=== PATIENT | female | born 1950 | race Caucasian/White ===

== ENCOUNTER 2017-01-20 12:19 | Observation (INO) ==
--- NOTE | 2017-01-20 13:14 | Emergency Department Note ---
Disposition Clinical Impression: Fx humerus shaft-closed, Vasovagal near syncope Disposition: Home, Self-Care Condition: Fair Referrals: Jeremiah Villanueva DO [Primary Care Provider] - Forms: ED Satisfaction Letter Time of Disposition: 14:58 (stan guerra) Nausea/Vomiting/Diarrhea HPI - General Chief complaint: ED Nausea/Vomiting/Diarrhea Stated complaint: diarrhea/ dizziness with BM Time Seen by Provider: 01/20/17 12:21 Source: patient, EMS Mode of arrival: EMS Limitations: no limitations Nursing Notes Reviewed: Yes Vital Signs Reviewed: Yes - History of Present Illness HPI Narrative: Patient was apparently sitting on the toilet when she is having a diarrhea bowel movement when she felt lightheaded. She was given a pass out patient that she was hypoglycemic so they gave her 3-1/2 bowls of ice cream and a bowl of beef stew and now the patient presents worse with a sugar of 500+ and states that she is feeling better she denies any fever chills or night sweats rash or lesion she thought her sugar bottomed out when she got syncope shows a chest pain chest pressure patient's cough hemoptysis or sputum production she has a diarrhea melena hematochezia or hematemesis times daily this recent weight gain or weight loss Pt Subjective Complaint: nausea, diarrhea Onset (ago): Just CORE MAN Description of Diarrhea: water Number of episodes: 2 Associated Abdominal Pain: Yes If pain, Location of pain: diffuse Severity: mild Severity scale (1-10): 2 Quality: cramping Consistency: intermittent Improves with: nothing Worsens with: nonthing Associated symptoms: Reports: nausea/vomiting, weakness. Denies: myalgias, chest pain, cough, diaphoresis, fever/chills, headaches, loss of appetite, malaise, dysuria, shortness of breath, syncope - Related Data Home Medications Medication Instructions Recorded Confirmed Atenolol 100 mg PO DAILY 06/27/15 01/20/17 Calcium Citrate/Vitamin D3 600 mg PO BID 06/27/15 01/20/17 Cyclobenzaprine 10 mg PO BID PRN 06/27/15 01/20/17 Ferrous Sulfate 325 mg PO DAILY 06/27/15 01/20/17 Gabapentin 300 mg PO HS 06/27/15 01/20/17 Gemfibrozil 600 mg PO BID 06/27/15 01/20/17 GlyBURIDE 10 mg PO BID 06/27/15 01/20/17 Insulin Glargine,Hum.rec.anlog 50 unit SQ HS 06/27/15 01/20/17 [Lantus Solostar] Lisinopril 20 mg PO DAILY 06/27/15 01/20/17 NovoLOG 15 units SQ TID 06/27/15 01/20/17 Aspirin 81 mg PO DAILY 01/11/17 01/20/17 Previous Rx's Medication Instructions Recorded FLUoxetine HCl [Prozac] 20 mg PO DAILY #30 capsule 06/30/15 RisperiDONE [RisperDAL] 2 mg PO HS #30 tablet 06/30/15 TraZODone 100 mg PO HS PRN #45 06/30/15 Magnesium Oxide [Mag-Ox] 400 mg PO BID #6 tablet 07/01/16 HYDROcodone/Acet 5/325 mg [[place] 1 tab PO Q6H #20 tab 01/11/17 5-325 mg] Allergies Allergy/AdvReac Type Severity Reaction Status Date / Time iodine Allergy Hives Verified 12/04/16 11:27 All systems ED: reviewed and negative except as stated. Constitutional: Denies: fever Eyes: Denies: eye pain ENT ED: Denies: ear pain Cardiovascular: Denies: chest pain Respiratory: Denies: cough Gastrointestinal: Reports: abdominal pain, nausea, diarrhea Genitourinary: Denies: urgency Musculoskeletal: Denies: back pain Integumentary: Denies: abrasion Neurological: Reports: weakness Psychiatric: Denies: depression Endocrine: Reports: fatigue Hematological/Lymphatic: Denies: easy bruising Allergic/Immunologic: Denies: facial swelling Past Medical History - Past Medical History Attestation: Yes The following information was validated with the patient. Source: patient, old records reviewed, nursing notes reviewed Medical history: Reports: diabetes, hyperlipidemia, hypertension Surgical history: Reports: cholecystectomy, hysterectomy Psychiatric history: Reports: anxiety, depression, prior suicide attempt, previous psychiatric hospitalization - Social History Smoking Status: Never smoker Smokeless Tobacco Status: No Alcohol use: Reports: none Drug use: Reports: none Physical Exam - General Limitations: no limitations General appearance: alert, in no apparent distress, cachectic - Head Head exam: atraumatic, normocephalic, normal inspection - Eye Eye exam: Present: normal appearance, PERRL, EOMI - ENT ENT exam: normal exam, normal oropharynx, mucous membranes moist, normal external ear exam - Neck Neck exam: Present: normal inspection, full ROM, trachea midline - Chest Chest inspection: Present: normal inspection - Respiratory Respiratory exam: Present: wheezes, prolonged expiratory phase - Cardiovascular Cardiovascular exam: Present: regular rate, normal rhythm, normal heart sounds - Abdominal Exam Abdominal exam: Present: soft, Non-Tender, normal bowel sounds - Extremities Exam Extremities exam: Present: normal inspection, full ROM, normal capillary refill. Absent: tenderness, joint swelling - Expanded Lower Extremity Exam Gait: observed and normal - Back Exam Back exam: Present: normal inspection, full ROM. Absent: muscle spasm - Neurological Exam Neurological exam: Present: alert, oriented X3, CN II-XII intact, normal gait - Psychiatric Psychiatric exam: Present: normal affect, normal mood - Skin Skin exam: Present: warm, dry, intact, normal color Course Course Narrative: Patient seen and examined Vital Signs Temperature 99.2 F 01/20/17 12:21 Pulse Rate 96 01/20/17 12:21 Respiratory Rate 18 01/20/17 12:21 Blood Pressure 163/65 01/20/17 12:21 O2 Sat by Pulse Oximetry 98 01/20/17 12:21 Temperature 99.2 F 01/20/17 12:21 Pulse Rate 103 01/20/17 15:12 Respiratory Rate 19 01/20/17 15:12 Blood Pressure 140/47 01/20/17 14:21 O2 Sat by Pulse Oximetry 98 01/20/17 15:12 Oxygen Delivery Oxygen Delivery Room Air Nausea/Vomiting/Diarrhea - [facility] Narrative Medical decision making narrative: Vasovagal syncope - Medical Records Medical records reviewed: Yes I reviewed the patient's medical records. - Lab Data Lab results reviewed: Yes I reviewed the patient's lab results. Result diagrams: 01/20/17 13:25 01/20/17 13:25 Lab Results 01/20/17 01/20/17 01/20/17 Range/Units 13:25 13:25 13:25 WBC 9.4 (4.3-11.1) K/mcL RBC 3.44 L (3.82-4.97) M/mcL Hgb 9.4 L (11.5-15.4) g/dL Hct 28.0 L (35.3-44.9) % MCV 81.4 L (83.0-100.0) fL MCH 27.3 L (28.0-33.3) pg MCHC 33.6 (31.6-35.5) g/dL RDW 13.9 (11.5-14.5) % Plt Count 320 (140-400) K/mcL MPV 10.1 (9.4-12.4) fL Immature Gran % 0.4 (0-4) % Seg Neutrophils % 78.3 % Lymphocytes % 13.3 % Monocytes % 5.5 % Eosinophils % 2.1 % Basophils % 0.4 % Neutrophils # 7.4 (1.6-8.9) K/mcL Lymphocytes # 1.3 (0.6-4.6) K/mcL Monocytes # 0.5 (0.0-1.3) K/mcL Eosinophils # 0.2 (0.0-0.6) K/mcL Basophils # 0.0 (0.0-0.2) K/mcL Sodium 132 L (136-145) mEq/L Potassium 4.1 (3.5-4.5) mEq/L Chloride 95 L (98-109) mEq/L Carbon Dioxide 24 (19-29) mEq/L BUN 22 H (7-20) mg/dL Creatinine 1.70 H D (0.57-1.11) mg/dL Est GFR ( Amer) 37 L (> 60) Est GFR (Non-Af Amer) 30 L (> 60) BUN/Creatinine Ratio 13 (6-26) Glucose 538 H* (70-99) mg/dL POC Glucose (58-89) Calculated Osmolality 302 H (280-300) Calcium 9.3 (8.6-10.8) mg/dL Troponin I 0.02 (0-0.03) ng/mL Beta-Hydroxybutyric Acd 1.27 H (0.02-0.27) mmol/L 01/20/17 Range/Units 15:11 WBC (4.3-11.1) K/mcL RBC (3.82-4.97) M/mcL Hgb (11.5-15.4) g/dL Hct (35.3-44.9) % MCV (83.0-100.0) fL MCH (28.0-33.3) pg MCHC (31.6-35.5) g/dL RDW (11.5-14.5) % Plt Count (140-400) K/mcL MPV (9.4-12.4) fL Immature Gran % (0-4) % Seg Neutrophils % % Lymphocytes % % Monocytes % % Eosinophils % % Basophils % % Neutrophils # (1.6-8.9) K/mcL Lymphocytes # (0.6-4.6) K/mcL Monocytes # (0.0-1.3) K/mcL Eosinophils # (0.0-0.6) K/mcL Basophils # (0.0-0.2) K/mcL Sodium (136-145) mEq/L Potassium (3.5-4.5) mEq/L Chloride (98-109) mEq/L Carbon Dioxide (19-29) mEq/L BUN (7-20) mg/dL Creatinine (0.57-1.11) mg/dL Est GFR ( Amer) (> 60) Est GFR (Non-Af Amer) (> 60) BUN/Creatinine Ratio (6-26) Glucose (70-99) mg/dL POC Glucose 315 H (58-89) Calculated Osmolality (280-300) Calcium (8.6-10.8) mg/dL Troponin I (0-0.03) ng/mL Beta-Hydroxybutyric Acd (0.02-0.27) mmol/L - Radiology Data Radiology results reviewed: Yes I reviewed the patient's radiology results. ITS Impressions Chest X-Ray 01/20/17 12:57 IMPRESSION: No acute cardiopulmonary disease. Comminuted fracture of the proximal humeral diaphysis on the right. D/ / Martin Reynoso MD / Martin Reynoso MD Interpreting Provider: Martin Reynoso MD - EKG Data EKG attestation: Yes I reviewed and interpreted this EKG. EKG results narrative: Sinus tach rate 104 FL 156 QRS 86 QT 368 axis LV Critical Care Time Critical Care Time: No
[2017-01-20 13:31] LABS: Basophils % 0.4 %; Eosinophils # 0.2 K/mcL (0.0-0.6); Eosinophils % 2.1 %; Hemoglobin 9.4 g/dL (11.5-15.4); Immature Granulocytes % 0.4 % (0-4); Lymphocytes # 1.3 K/mcL (0.6-4.6); Lymphocytes % 13.3 %; Mean Corpuscular HGB Conc 33.6 g/dL (31.6-35.5); Mean Corpuscular Hemoglobin 27.3 pg (28.0-33.3); Mean Corpuscular Volume 81.4 fL (83.0-100.0); Mean Platelet Volume 10.1 fL (9.4-12.4); Monocytes # 0.5 K/mcL (0.0-1.3); Monocytes % 5.5 %; Neutrophils # 7.4 K/mcL (1.6-8.9); Platelet Count 320 K/mcL (140-400); Red Blood Count 3.44 M/mcL (3.82-4.97); Red Cell Distribution Width 13.9 % (11.5-14.5); Segmented Neutrophils % 78.3 %
[2017-01-20 13:44] LABS: Calcium 9.3 mg/dL (8.6-10.8); Potassium 4.1 mEq/L (3.5-4.5)
[2017-01-20 13:47] LABS: Beta-Hydroxybutyric Acid 1.27 mmol/L (0.02-0.27)
[2017-01-20] MEDS ORDERED: Insulin Regular, Human 100 UNIT/ML IV ONE (13:54)
[2017-01-20] MEDS: 0.9 % Sodium Chloride 1,000 ML IVC SCH ×4 (14:15→17:11)
[2017-01-20] MEDS ORDERED: Naloxone 0.4 MG/ML INJ IVP PRN (16:19)
[2017-01-20] MEDS ORDERED: D5% in Water 1,000 ML IVC PRN (16:19)
[2017-01-20] MEDS ORDERED: Dextrose Gel 15 GM PO PRN ×2 (16:19)
[2017-01-20] MEDS ORDERED: Ondansetron 4 MG/2 ML VIAL IVP PRN (16:19)
[2017-01-20] MEDS ORDERED: Ibuprofen 400 MG TABLET PO PRN (16:19)
[2017-01-20] MEDS ORDERED: *HR* Dextrose 50 % in Water (Syg) 50 ML SYRINGE IVP PRN (16:19)
[2017-01-20] MEDS: Insulin LISPRO 300 UNITS/3 ML VIAL SQ SCH ×3 (17:10→21:15)
[2017-01-20] MEDS: *HR* HYDROcodone/Acet 5/325 mg TABLET PO SCH (17:11)
--- NOTE | 2017-01-20 20:56 | Electrocardiograph Report ---
[address] [address] Test Date: 2017-01-20 Pat Name: Whit Harmon Department: [id number] Room: [facility] Gender: F Relief Cook: [id number] : 1950 Requested By: Dori Wilson Order Number: [id number] Reading MD: Philippe Villegas MD Measurements Intervals [place] Rate: 104 P: 78 IN: 156 QRS: 55 QRSD: 86 T: 48 QT: 368 QTc: 428 Interpretive Statements SINUS TACHYCARDIA Electronically Signed On 01-20-2017 20:54:59 EDT by Philippe Villegas MD
[2017-01-20] MEDS: RisperiDONE 1 MG TABLET PO SCH (21:13)
[2017-01-20] MEDS: Gabapentin 300 MG CAPSULE PO SCH (21:14)
[2017-01-20] MEDS: Insulin DETEMIR 100 UNIT/ML X5UNITS SQ SCH (21:14)
[2017-01-20] MEDS: Magnesium Oxide 400 MG TABLET PO SCH (21:14)
[2017-01-20] MEDS: *HR* GlyBURIDE 5 MG TABLET PO SCH (21:14)
[2017-01-21 03:12] LABS: Basophils % 0.4 %; Eosinophils # 0.4 K/mcL (0.0-0.6); Eosinophils % 5.5 %; Hematocrit 26.7 % (35.3-44.9); Hemoglobin 8.8 g/dL (11.5-15.4); Immature Granulocytes % 0.3 % (0-4); Lymphocytes # 2.8 K/mcL (0.6-4.6); Lymphocytes % 37.7 %; Mean Corpuscular Hemoglobin 27.2 pg (28.0-33.3); Mean Corpuscular Volume 82.4 fL (83.0-100.0); Mean Platelet Volume 9.3 fL (9.4-12.4); Monocytes # 0.4 K/mcL (0.0-1.3); Monocytes % 5.3 %; Neutrophils # 3.7 K/mcL (1.6-8.9); Platelet Count 290 K/mcL (140-400); Red Blood Count 3.24 M/mcL (3.82-4.97); Segmented Neutrophils % 50.8 %
[2017-01-21 03:17] LABS: INR 1.2; Prothrombin Time 12.5 Seconds (9.4-12.1)
[2017-01-21 03:27] LABS: BUN/Creatinine Ratio 20 (6-26); Blood Urea Nitrogen 17 mg/dL (7-20); Calcium 8.8 mg/dL (8.6-10.8); Carbon Dioxide 22 mEq/L (19-29); Chloride 107 mEq/L (98-109); Glucose 76 mg/dL (70-99); Potassium 2.9 mEq/L (3.5-4.5); eGFR For African Americans > 60 (> 60); eGFR For Non-African Americans > 60 (> 60)
[2017-01-21 03:52] LABS: Osmolality,Calculated 294 (280-300); Sodium 142 mEq/L (136-145)
[2017-01-21] MEDS: 0.9 % Sodium Chloride 1,000 ML IVC SCH ×2 (04:00→04:13)
[2017-01-21] MEDS: CALCIUM CITRATE PO SCH ×3 (04:13→21:08)
[2017-01-21] MEDS: [UNRECOGNIZED DRUG - OTHER] PO SCH ×3 (04:13→21:08)
[2017-01-21] MEDS: *HR* HYDROcodone/Acet 5/325 mg TABLET PO SCH ×5 (04:16→22:49)
[2017-01-21] MEDS: Insulin LISPRO 300 UNITS/3 ML VIAL SQ SCH ×7 (07:44→21:10)
[2017-01-21] MEDS: *HR* GlyBURIDE 5 MG TABLET PO SCH ×3 (07:44→21:08)
[2017-01-21] MEDS: Lisinopril 20 MG TABLET PO SCH (07:46)
[2017-01-21] MEDS: Aspirin Enteric Coated 81 MG Tablet PO SCH (07:46)
[2017-01-21] MEDS: FLUoxetine 20 MG CAPSULE PO SCH (07:46)
[2017-01-21] MEDS: Magnesium Oxide 400 MG TABLET PO SCH ×2 (07:46→21:08)
--- NOTE | 2017-01-21 09:19 | Internal Med History&Physical ---
Date of Encounter: 01/21/17 Time of Encounter: 08:35 Assessment and Plan (1) Syncope Current visit: Yes Status: Acute Etiology not certain but suspect cardiogenic etiology. She has been placed on telemetry. Orthostatic vital signs will be done. Repeat cardiac enzymes have been ordered and further workup as needed. Qualifiers: Syncope type: unspecified Qualified Code(s): R55 - Syncope and collapse (2) Anemia Current visit: No Status: Acute We will order anemia testing in a.m. Qualifiers: Anemia type: unspecified type Qualified Code(s): D64.9 - Anemia, unspecified (3) Azotemia Current visit: No Status: Resolved Now resolved. BUN and creatinine are 17 and 0.5 respectively on blood work this morning. (4) Hypomagnesemia Current visit: Yes Status: Acute Magnesium level was 1.4 on 07/01/2016. We will recheck in a.m. Internal Medicine - H&P: HPI Chief complaint: Syncope Admitted From: Home Plans for Post Hospital Care: Home History of present illness: Ms. Harmon is a 66 year old female who was brought to the emergency room from mental health clinic after she had a syncopal episode while sitting on the toilet. She had eaten 3 bowls of ice cream and beef stew at a social gathering. In emergency room her blood sugar was found to be 538 mg/dl. She had anemia and azotemia present. She was admitted to [facility] floor for ongoing care needs. She was hospitalized [facility] June 2016 with a syncopal episode. She reports she has had syncopal episodes approximately every 6 weeks since age 18. She had a syncopal episode approximately 2 weeks ago at latter day and fell resulting in a right humerus fracture. She was seen by the orthopedist and referred to cardiology for preoperative clearance. An echocardiogram was ordered which showed LVEF 65% with indeterminate LV diastolic function reported. The E/A ratio was 0.6. There was mild aortic regurgitation but no significant aortic stenosis. The intraventricular septum and posterior wall thickness measurements were elevated at 1.5 and 1.4 cm respectively. She states she wore a Holter monitor for 24 hours but no report is seen in the [facility] records. Her cardiovascular history is significant otherwise for hypertension but she denies [place] heart failure angina DVT or pulmonary embolus. She has not had a stress test or heart catheter done. Her neurologic history is pertinent for possible TIA 2002 with slurred speech. There is been no recurrence. She has DPN. She denies large distribution strokes or seizures. She states the syncopal episodes often are associated with sensation of vertigo and tunnel vision. She denies associated dysarthria or dysphagia. She denies loss of bowel or bladder continence. Past Med Surg Social Fam HX - Past Medical History Medical history: diabetes, hyperlipidemia, hypertension Psychiatric history: anxiety, depression, prior suicide attempt, previous psychiatric hospitalization - Past Surgical History Surgical History: cholecystectomy, hysterectomy - Social History Smoking Status: Never smoker Smokeless Tobacco Status: No Alcohol use: none Drug use: none Internal Medicine - H&P: Meds Atenolol 100 mg PO DAILY 06/27/15 [History] Calcium Citrate/Vitamin D3 600 mg PO BID 06/27/15 [History] Cyclobenzaprine 10 mg PO BID PRN 06/27/15 [History] Ferrous Sulfate 325 mg PO DAILY 06/27/15 [History] Gabapentin 300 mg PO HS 06/27/15 [History] Gemfibrozil 600 mg PO BID 06/27/15 [History] GlyBURIDE 10 mg PO BID 06/27/15 [History] Insulin Glargine,Hum.rec.anlog [Lantus Solostar] 50 unit SQ HS 06/27/15 [History ] Lisinopril 20 mg PO DAILY 06/27/15 [History] NovoLOG 15 units SQ TID 06/27/15 [History] FLUoxetine HCl [Prozac] 20 mg PO DAILY #30 capsule 06/30/15 [Rx] RisperiDONE [RisperDAL] 2 mg PO HS #30 tablet 06/30/15 [Rx] TraZODone 100 mg PO HS PRN #45 06/30/15 [Rx] Magnesium Oxide [Mag-Ox] 400 mg PO BID #6 tablet 07/01/16 [Rx] Aspirin 81 mg PO DAILY 01/11/17 [History] HYDROcodone/Acet 5/325 mg [[place] 5-325 mg] 1 tab PO Q6H #20 tab 01/11/17 [Rx] Allergies iodine Allergy (Verified 12/04/16 11:27) Hives All Systems PM: A 10-system review of systems was performed and is negative for pertinent findings except as documented above in the HPI. Review of systems: Gen.: Her weight has increased from 77.593 kg at the June 2016 discharge to 81.692 kg at present. Cardiovascular: As per history of present illness Respiratory: She smoked for approximately 16 months 10 years ago. She denies chronic lung disease. She had pulmonary function testing October 2012 which showed FEV1/FVC ratio of 0.85. Her MVV was 55% predicted. The residual volume was elevated at 136% consistent with air trapping. She wears oxygen at bedtime. She does not know the diagnosis for the oxygen use. GI: She has had cholecystectomy. She denies disorders of her liver or exocrine pancreas : She has occasional UTIs. She denies other kidney or bladder disorders Neurologic: As per history of present illness Endocrine: She was diagnosed DM 2 approximately 20 years ago. She has hyperlipidemia but no known thyroid disease Hematology/oncology: She had anemia workup during the June 2016 hospitalization which showed no factor deficiency. She denies internal malignancies Psychiatric: She has diagnoses of depression, anxiety, and schizophrenia Musk skeletal: She has DJD and occasional feelings of leg weakness. She denies other bone joint or muscle disorders. - Constitutional Vitals: Temp Pulse Resp BP Pulse Ox 97.5 F L 97 16 138/75 99 01/21/17 06:57 01/21/17 06:57 01/21/17 06:57 01/21/17 06:57 01/21/17 06:57 Exam: General: She is a well-developed well-nourished female lying in bed who appears in no acute distress at present time. HEENT: Head is atraumatic and normocephalic. Eyes: EOMI. There is no scleral icterus. Mouth: Mucosa is moist. Neck: Supple and nontender. There is no thyromegaly or adenopathy noted. Heart: Regular without murmurs gallops or ectopics. Lungs: No wheezes or crackles heard. Abdomen: Soft and nontender. No masses or guarding are noted. Extremities: There is no cyanosis edema or clubbing noted. The right arm is in an immobilization sling and I did not remove it. Left arm appears normal. Neurologic: Mental status: She is talkative and a good historian. Cranial nerves: Smile is symmetric. Forehead wrinkles bilaterally. Tongue protrudes midline. EOMI. Motor: There is no pronator drift (left arm). Cerebellar: Finger to nose is intact bilaterally. Skin: Warm and dry Internal Med - H&P Results - Labs CBC & Chem 7: 01/21/17 03:00 01/21/17 03:00 Labs: Short CBC 01/21/17 Range/Units 03:00 WBC 7.3 (4.3-11.1) K/mcL Hgb 8.8 L (11.5-15.4) g/dL Hct 26.7 L (35.3-44.9) % Plt Count 290 (140-400) K/mcL Neutrophils # 3.7 (1.6-8.9) K/mcL BMP 01/21/17 03:00 Sodium 142 D Potassium 2.9 L D Chloride 107 Carbon Dioxide 22 BUN 17 Creatinine 0.85 Glucose 76 Calcium 8.8 Cardiac Enzymes 01/20/17 01/21/17 Range/Units 19:45 03:00 Troponin I 0.03 0.02 (0-0.03) ng/mL
[2017-01-21] MEDS: RisperiDONE 1 MG TABLET PO SCH (21:08)
[2017-01-21] MEDS: Gabapentin 300 MG CAPSULE PO SCH (21:08)
[2017-01-21] MEDS: Insulin DETEMIR 100 UNIT/ML X5UNITS SQ SCH (21:11)
[2017-01-22] MEDS: *HR* HYDROcodone/Acet 5/325 mg TABLET PO SCH ×2 (05:26→11:53)
[2017-01-22 05:55] LABS: Basophils % 0.5 %; Eosinophils # 0.4 K/mcL (0.0-0.6); Eosinophils % 5.6 %; Hematocrit 26.1 % (35.3-44.9); Hemoglobin 8.7 g/dL (11.5-15.4); Immature Granulocytes % 0.3 % (0-4); Lymphocytes % 38.8 %; Mean Corpuscular HGB Conc 33.3 g/dL (31.6-35.5); Mean Corpuscular Hemoglobin 27.8 pg (28.0-33.3); Mean Corpuscular Volume 83.4 fL (83.0-100.0); Monocytes # 0.5 K/mcL (0.0-1.3); Monocytes % 6.8 %; Neutrophils # 3.7 K/mcL (1.6-8.9); Platelet Count 307 K/mcL (140-400); Red Blood Count 3.13 M/mcL (3.82-4.97); Red Cell Distribution Width 14.4 % (11.5-14.5)
[2017-01-22 06:19] LABS: BUN/Creatinine Ratio 22 (6-26); Blood Urea Nitrogen 17 mg/dL (7-20); Calcium 9.3 mg/dL (8.6-10.8); Carbon Dioxide 22 mEq/L (19-29); Chloride 108 mEq/L (98-109); Glucose 66 mg/dL (70-99); Magnesium 1.7 mg/dL (1.6-2.6); Osmolality,Calculated 292 (280-300); Potassium 4.1 mEq/L (3.5-4.5); Sodium 141 mEq/L (136-145); eGFR For African Americans > 60 (> 60); eGFR For Non-African Americans > 60 (> 60)
[2017-01-22 07:26] VITALS: BP 133/86
[2017-01-22] MEDS: FLUoxetine 20 MG CAPSULE PO SCH (09:00)
[2017-01-22] MEDS: Aspirin Enteric Coated 81 MG Tablet PO SCH (09:00)
[2017-01-22] MEDS: *HR* GlyBURIDE 5 MG TABLET PO SCH (09:00)
[2017-01-22] MEDS: Magnesium Oxide 400 MG TABLET PO SCH (09:01)
[2017-01-22] MEDS: Lisinopril 20 MG TABLET PO SCH (09:02)
[2017-01-22] MEDS: Insulin LISPRO 300 UNITS/3 ML VIAL SQ SCH ×3 (09:06→11:54)
[2017-01-22] MEDS: [UNRECOGNIZED DRUG - OTHER] PO SCH (09:07)
[2017-01-22] MEDS: CALCIUM CITRATE PO SCH (09:07)
--- NOTE | 2017-01-22 13:34 | Discharge Summary ---
Date of Encounter: 01/22/17 Time of Encounter: 13:25 - Discharge Diagnosis (1) Syncope Priority: Primary Status: Acute Qualifiers: Syncope type: unspecified Qualified Code(s): R55 - Syncope and collapse (2) Anemia Priority: Secondary Status: Acute Qualifiers: Anemia type: unspecified type Qualified Code(s): D64.9 - Anemia, unspecified (3) Azotemia Priority: Secondary Status: Resolved (4) Hypomagnesemia Priority: Secondary Status: Resolved - Discharge Medications Home Medications: Atenolol 100 mg PO DAILY 06/27/15 [History] Calcium Citrate/Vitamin D3 600 mg PO BID 06/27/15 [History] Cyclobenzaprine 10 mg PO BID PRN 06/27/15 [History] Ferrous Sulfate 325 mg PO DAILY 06/27/15 [History] Gabapentin 300 mg PO HS 06/27/15 [History] Gemfibrozil 600 mg PO BID 06/27/15 [History] GlyBURIDE 10 mg PO BID 06/27/15 [History] Insulin Glargine,Hum.rec.anlog [Lantus Solostar] 50 unit SQ HS 06/27/15 [History ] Lisinopril 20 mg PO DAILY 06/27/15 [History] NovoLOG 15 units SQ TID 06/27/15 [History] FLUoxetine HCl [Prozac] 20 mg PO DAILY #30 capsule 06/30/15 [Rx] RisperiDONE [RisperDAL] 2 mg PO HS #30 tablet 06/30/15 [Rx] TraZODone 100 mg PO HS PRN #45 06/30/15 [Rx] Magnesium Oxide [Mag-Ox] 400 mg PO BID #6 tablet 07/01/16 [Rx] Aspirin 81 mg PO DAILY 01/11/17 [History] HYDROcodone/Acet 5/325 mg [[place] 5-325 mg] 1 tab PO Q6H #20 tab 01/11/17 [Rx] Allergies/Adverse Reactions: Allergies iodine Allergy (Verified 12/04/16 11:27) Hives Date of admission: 01/20/17 16:02 Primary care physician: Jeremiah Villanueva DO Consults: 01/20/17 16:56 Consult to Security Incident Handler [CONS] Routine Reason for SW Consult: discharge planning - Patient Status Disposition: Home, Self-Care Condition: Fair Overall status at discharge: patient is progressing back to baseline - Discharge Instructions Follow Up With: Jeremiah Villanueva DO [Primary Care Provider] - 1 week - Diet and Activity Activity: resume usual activities as tolerated Diet: advance to your usual diet Hospital course: Ms. Harmon is a 66 year old female who was brought to the emergency room from mental health clinic after she had a syncopal episode while sitting on the toilet. She had eaten 3 bowls of ice cream and a bowl of beef stew at a social gathering. In emergency room her blood sugar was found to be 538 mg/dl. She had anemia and azotemia present. She was admitted to [facility] for ongoing care needs. Initial orders were written by the emergency room physician. I saw her on January 21 and performed a history and physical. Her blood sugar remained reasonably controlled during her hospital stay. She had no further syncopal or syncopal episodes. Her telemetry remained stable without ectopy. The etiology of her syncopal episodes was not determined with certainty. IV fluids were given and her azotemia resolved with BUN and creatinine being 17 and 0.76 respectively the day of discharge with her estimated GFR greater than 60. Hemoglobin decreased to 8.7 the day of discharge. Anemia testing was ordered with results pending at time of this dictation. She will be discharged home and follow with her PCP Jeremiah Villanueva D.O. within 1 week. She is scheduled for right shoulder surgery tomorrow. - Time Spent with Patient Total time spent providing and/or coordinating discharge services: - Constitutional Vitals: Temp Pulse Resp BP Pulse Ox 98.5 F 79 16 133/86 95 01/22/17 10:58 01/22/17 10:58 01/22/17 10:58 01/22/17 10:58 01/22/17 10:58
[2017-01-22 18:20] LABS: % Iron Saturation 14 % (15-50); Iron 36 mcg/dL (50-170); Transferrin 189 mg/dL (180-382)
[2017-01-22 18:40] LABS: Ferritin 511 ng/ml (5-204)
[2017-01-22 18:55] LABS: Folate 16.7 ng/mL (7.0-31.4)
== END 2017-01-22 16:25 | disposition home or self-care (01) ==
LOC: EMEROOPIK 12:19 → INPPIK 12:19
PROVIDERS: ADMIT Internal Medicine; ATTEND Internal Medicine

== ENCOUNTER 2017-06-28 10:45 | Observation (INO) ==
[2017-06-28 11:40] LABS: Basophils % 0.5 %; Eosinophils # 0.3 K/mcL (0.0-0.6); Eosinophils % 3.5 %; Hematocrit 30.1 % (35.3-44.9); Hemoglobin 10.2 g/dL (11.5-15.4); Immature Granulocytes % 0.2 % (0-4); Lymphocytes # 1.6 K/mcL (0.6-4.6); Lymphocytes % 17.8 %; Mean Corpuscular HGB Conc 33.9 g/dL (31.6-35.5); Mean Corpuscular Hemoglobin 27.6 pg (28.0-33.3); Mean Corpuscular Volume 81.4 fL (83.0-100.0); Mean Platelet Volume 10.5 fL (9.4-12.4); Monocytes # 0.4 K/mcL (0.0-1.3); Monocytes % 4.5 %; Neutrophils # 6.4 K/mcL (1.6-8.9); Platelet Count 321 K/mcL (140-400); Red Cell Distribution Width 13.1 % (11.5-14.5); Segmented Neutrophils % 73.5 %
[2017-06-28 11:48] LABS: INR 1.1; Prothrombin Time 12.2 Seconds (9.4-12.1)
[2017-06-28 11:51] LABS: Activated Partial Thrombo Time 38.3 Seconds (26.0-36.0)
--- NOTE | 2017-06-28 11:53 | Emergency Department Note ---
Disposition Clinical Impression: Hypotension, Bradycardia Disposition: Admitted As Inpatient Condition: Fair Referrals: Jeremiah Villanueva DO [Primary Care Provider] - Forms: ED Satisfaction Letter Time of Disposition: 13:00 ([facility]) Dizziness HPI - General Chief Complaint: ED Dizziness Stated Complaint: low blood pressure, slurred speech Time Seen by Provider: 06/28/17 10:55 Source: patient, EMS Mode of arrival: EMS Limitations: no limitations Nursing Notes Reviewed: Yes Vital Signs Reviewed: Yes - History of Present Illness HPI Narrative: Patient's been dizzy for the last 2 days today when at physical therapy felt lightheaded dizzy was going to pass out they took her to the local urgent care and and she was noted to have a blood pressure of 80 palp and bradycardic symptomatic with this was given fluids and transported to the emergency room for evaluation last known well was 48 hours plus patient does states that she is tired just wants to sleep she is taking what appears to be hydrocodone for pain medication she denies that she has taken more than she should have forsaken anymore medications and she should have she states that she is not eating or drinking is not very hungry Pt Subjective Complaint: dizziness, lightheadedness, near syncope, weakness Onset (ago): day(s) (2) Timing: gradual onset Description: lightheadedness History of similar episodes: No History of trauma: No Severity: moderate Improves with: nothing Worsens with: nothing Associated symptoms: Reports: malaise, syncope (near), weakness. Denies: ataxia , chest pain, confusion, diaphoresis, fever, chills, rash, shortness of breath, vision changes, nausea, vomiting, palpitations - Related Data Home Medications Medication Instructions Recorded Confirmed Insulin ASPART [NovoLOG] 0 unit SQ TID PRN #0 06/27/15 06/28/17 Insulin Glargine,Hum.rec.anlog 15 unit SQ BID 06/27/15 06/28/17 [Lantus Solostar] Lisinopril [Zestril] 20 mg PO DAILY #0 06/27/15 06/28/17 Aspirin 81 mg PO DAILY 01/23/17 06/28/17 Calcium Carbonate/Vitamin D3 1 each PO BID 01/23/17 06/28/17 [Calcium 500 + Vit D Caplet] Cyclobenzaprine [Flexeril] 10 mg PO BID 01/23/17 06/28/17 Ferrous Sulfate [Iron] 325 mg PO DAILY 01/23/17 06/28/17 Gabapentin [Neurontin] 300 mg PO DAILY 01/23/17 06/28/17 Gemfibrozil [Lopid] 600 mg PO BID 01/23/17 06/28/17 Linagliptin/Metformin HCl 1 each PO BID 01/23/17 06/28/17 [Jentadueto 2.5 mg-1000 mg Tab] Paroxetine HCl [Paxil] 40 mg PO DAILY 01/23/17 06/28/17 Trazodone HCl 100 mg PO HS 01/23/17 06/28/17 glyBURIDE [GlyBURIDE] 10 mg PO BID 01/23/17 06/28/17 hydroCHLOROthiazide 25 mg PO DAILY 01/23/17 06/28/17 [Hydrochlorothiazide] risperiDONE [Risperdal] 4 mg PO HS 01/23/17 06/28/17 Previous Rx's Medication Instructions Recorded Magnesium Oxide [Mag-Ox] 400 mg PO BID #6 tablet 07/01/16 HYDROcodone/Acet 5/325 mg [[place] 1 tab PO Q6H #20 tab 01/11/17 5-325 mg] OxyCODONE Immed Rel [Roxicodone 5 5 mg PO Q6HR PRN #28 tablet 01/22/17 MG] Allergies Allergy/AdvReac Type Severity Reaction Status Date / Time iodine Allergy Hives Verified 06/28/17 10:38 All systems ED: reviewed and negative except as stated. Review of Systems: As Per HPI Constitutional: Reports: weakness. Denies: fever, chills Eyes: Denies: eye pain ENT ED: Denies: ear pain, throat pain Cardiovascular: Denies: chest pain, palpitations Respiratory: Denies: cough, dyspnea Gastrointestinal: Denies: abdominal pain, nausea, vomiting Genitourinary: Denies: urgency, dysuria, frequency Musculoskeletal: Denies: back pain, neck pain Integumentary: Denies: rash, abrasion, lesions Neurological: Reports: weakness, other (slurred speech). Denies: headache Psychiatric: Denies: anxiety, depression Endocrine: Reports: fatigue Hematological/Lymphatic: Denies: easy bleeding, easy bruising Allergic/Immunologic: Denies: facial swelling, urticaria Past Medical History - Past Medical History Attestation: Yes The following information was validated with the patient. Source: patient, old records reviewed, nursing notes reviewed Medical history: Reports: diabetes, hyperlipidemia, hypertension Surgical history: Reports: cholecystectomy, hysterectomy Psychiatric history: Reports: anxiety, depression, prior suicide attempt, previous psychiatric hospitalization - Social History Smoking Status: Never smoker Smokeless Tobacco Status: No Alcohol use: Reports: none Drug use: Reports: none Physical Exam - General Limitations: no limitations General appearance: alert, in no apparent distress - Head Head exam: atraumatic, normocephalic, normal inspection - Eye Eye exam: Present: normal appearance, PERRL, EOMI - ENT ENT exam: normal exam, normal oropharynx, mucous membranes moist, TM's normal bilaterally, normal external ear exam, other (Upper plate only for dentures) - Neck Neck exam: Present: normal inspection, full ROM, trachea midline - Chest Chest inspection: Present: normal inspection, symmetric chest wall rise - Respiratory Respiratory exam: Present: normal lung sounds bilaterally - Cardiovascular Cardiovascular exam: Present: bradycardia, normal heart sounds - Abdominal Exam Abdominal exam: Present: soft, Non-Tender, normal bowel sounds. Absent: mass, pulsatile mass - Expanded Upper Extremity Exam Shoulder exam: Present: normal inspection, full ROM, other (Slight weakness noted in the right upper extremity from the shoulder to the elbow region as result of a recent fracture and loss of muscle tone which she is currently getting physical therapy but she follows commands well briskly is able to hold it up without any drift noted on neuro exam) Arm exam: Present: normal inspection, full ROM Elbow exam: Present: normal inspection, full ROM Forearm/Wrist exam: Present: normal inspection, full ROM Hand exam: Present: normal inspection, full ROM Neurosensory exam: Normal: radial nerve, ulnar nerve, median nerve Vascular exam: Normal: capillary refill, radial pulse, ulnar pulse - Expanded Lower Extremity Exam Hip/Pelvis exam: Present: normal inspection, full ROM Upper leg exam: Present: normal inspection, full ROM Knee exam: Present: normal inspection, full ROM Lower leg exam: Present: normal inspection, full ROM Ankle exam: Present: normal inspection, full ROM Foot/toe exam: Present: normal inspection, full ROM Neurovascular/Tendon exam: Present: normal capillary refill, normal fine/light touch. Absent: motor deficit, sensory deficit, tendon deficit Gait: not tested/not observed - Back Exam Back exam: Present: normal inspection, full ROM. Absent: muscle spasm - Neurological Exam Neurological exam: Present: alert, oriented X3, CN II-XII intact, other (Speech slurred but only upper dental plate is in place patient is very lethargic but arouses easily goes back to sleep) - Psychiatric Psychiatric exam: Present: normal affect, normal mood - Skin Skin exam: Present: warm, dry, intact, normal color Course Course Narrative: Patient was seen and examined patient was admitted for observation as a result of the symptomatic bradycardia hypotension which may be medication related she did not have a full set of teeth in that her speech was slurred she had no focal weakness right arm or left arm except for where she had her previous fracture of the right arm having a little bit of weakness in the right arm due to recently having it removed from surgical splinting patient had no swelling no edema her serial enzymes and EKGs Vital Signs Temperature 97.1 F L 06/28/17 10:47 Pulse Rate 57 06/28/17 10:47 Respiratory Rate 18 06/28/17 10:47 Blood Pressure 124/65 06/28/17 10:47 O2 Sat by Pulse Oximetry 97 06/28/17 10:47 Temperature 97.1 F L 06/28/17 10:47 Pulse Rate 56 06/28/17 12:39 Respiratory Rate 18 06/28/17 12:39 Blood Pressure 106/65 06/28/17 12:39 O2 Sat by Pulse Oximetry 97 06/28/17 12:39 Oxygen Delivery Oxygen Delivery Room Air Dizziness - Differential Diagnosis Likely: adverse reaction to drug, orthostatic hypotension - Medical Records Medical records reviewed: Yes I reviewed the patient's medical records. - Lab Data Lab results reviewed: Yes I reviewed the patient's lab results. Result diagrams: 06/28/17 11:31 06/28/17 11:31 Lab Results 06/28/17 06/28/17 06/28/17 Range/Units 11:30 11:31 11:31 WBC 8.8 (4.3-11.1) K/mcL RBC 3.70 L (3.82-4.97) M/mcL Hgb 10.2 L (11.5-15.4) g/dL Hct 30.1 L (35.3-44.9) % MCV 81.4 L (83.0-100.0) fL MCH 27.6 L (28.0-33.3) pg MCHC 33.9 (31.6-35.5) g/dL RDW 13.1 (11.5-14.5) % Plt Count 321 (140-400) K/mcL MPV 10.5 (9.4-12.4) fL Immature Gran % 0.2 (0-4) % Seg Neutrophils % 73.5 % Lymphocytes % 17.8 % Monocytes % 4.5 % Eosinophils % 3.5 % Basophils % 0.5 % Neutrophils # 6.4 (1.6-8.9) K/mcL Lymphocytes # 1.6 (0.6-4.6) K/mcL Monocytes # 0.4 (0.0-1.3) K/mcL Eosinophils # 0.3 (0.0-0.6) K/mcL Basophils # 0.0 (0.0-0.2) K/mcL PT 12.2 H (9.4-12.1) Seconds INR 1.1 APTT 38.3 H (26.0-36.0) Seconds Sodium (136-145) mEq/L Potassium (3.5-4.5) mEq/L Chloride (98-109) mEq/L Carbon Dioxide (19-29) mEq/L BUN (7-20) mg/dL Creatinine (0.57-1.11) mg/dL Est GFR ( Amer) (> 60) Est GFR (Non-Af Amer) (> 60) BUN/Creatinine Ratio (6-26) Glucose (70-99) mg/dL Calculated Osmolality (280-300) Calcium (8.6-10.8) mg/dL Troponin I 0.00 (0-0.03) ng/mL TSH (0.350-4.840) mcIU/mL 06/28/17 Range/Units 11:31 WBC (4.3-11.1) K/mcL RBC (3.82-4.97) M/mcL Hgb (11.5-15.4) g/dL Hct (35.3-44.9) % MCV (83.0-100.0) fL MCH (28.0-33.3) pg MCHC (31.6-35.5) g/dL RDW (11.5-14.5) % Plt Count (140-400) K/mcL MPV (9.4-12.4) fL Immature Gran % (0-4) % Seg Neutrophils % % Lymphocytes % % Monocytes % % Eosinophils % % Basophils % % Neutrophils # (1.6-8.9) K/mcL Lymphocytes # (0.6-4.6) K/mcL Monocytes # (0.0-1.3) K/mcL Eosinophils # (0.0-0.6) K/mcL Basophils # (0.0-0.2) K/mcL PT (9.4-12.1) Seconds INR APTT (26.0-36.0) Seconds Sodium 139 (136-145) mEq/L Potassium 4.0 (3.5-4.5) mEq/L Chloride 102 (98-109) mEq/L Carbon Dioxide 24 (19-29) mEq/L BUN 30 H (7-20) mg/dL Creatinine 0.99 (0.57-1.11) mg/dL Est GFR ( Amer) > 60 (> 60) Est GFR (Non-Af Amer) 56 L (> 60) BUN/Creatinine Ratio 30 H (6-26) Glucose 117 H (70-99) mg/dL Calculated Osmolality 295 (280-300) Calcium 10.0 (8.6-10.8) mg/dL Troponin I (0-0.03) ng/mL TSH 1.129 (0.350-4.840) mcIU/mL - Radiology Data Radiology results reviewed: Yes I reviewed the patient's radiology results. ITS Impressions Head CT 06/28/17 11:05 IMPRESSION: 1. No acute intracranial abnormality. These findings were discussed with Dr. Wilson at 11:40 a.m. 06/28/2017. D/ / Russell Langston MD / Russell Langston MD Interpreting Provider: Russell Langston MD Chest X-Ray 06/28/17 11:06 IMPRESSION: No acute cardiopulmonary process identified. D/ / Jordan Dunaway MD / Jordan Dunaway MD Interpreting Provider: Jordan Dunaway MD - EKG Data EKG attestation: Yes I reviewed and interpreted this EKG. EKG results narrative: Sinus bradycardia rate 56 UT 170 QRS 87 QT 468 axis LXIV Critical Care Time Critical Care Time: No
[2017-06-28 11:57] LABS: BUN/Creatinine Ratio 30 (6-26); Blood Urea Nitrogen 30 mg/dL (7-20); Carbon Dioxide 24 mEq/L (19-29); Chloride 102 mEq/L (98-109); Glucose 117 mg/dL (70-99); Osmolality,Calculated 295 (280-300); Sodium 139 mEq/L (136-145); eGFR For African Americans > 60 (> 60); eGFR For Non-African Americans 56 (> 60)
[2017-06-28 12:18] LABS: Thyroid Stimulating Hormone 1.129 mcIU/mL (0.350-4.840)
[2017-06-28] MEDS ORDERED: *HR* Dextrose 50 % in Water (Syg) 50 ML SYRINGE IVP PRN (14:03)
[2017-06-28] MEDS ORDERED: Naloxone 0.4 MG/ML INJ IVP PRN (14:03)
[2017-06-28] MEDS ORDERED: *HR* OxyCODONE Immed Rel 5 MG TABLET PO PRN (14:03)
[2017-06-28] MEDS ORDERED: Dextrose Gel 15 GM PO PRN ×2 (14:03)
[2017-06-28] MEDS ORDERED: D5% in Water 1,000 ML IVC PRN (14:03)
[2017-06-28] MEDS ORDERED: Ondansetron 4 MG/2 ML VIAL IVP PRN (14:03)
[2017-06-28] MEDS ORDERED: 0.9 % Sodium Chloride 1,000 ML IVC SCH (14:03)
[2017-06-28] MEDS: Insulin LISPRO 300 UNITS/3 ML VIAL SQ SCH (17:03)
[2017-06-28] MEDS: *HR* HYDROcodone/Acet 5/325 mg TABLET PO SCH ×2 (17:06→22:22)
--- NOTE | 2017-06-28 17:14 | Internal Med History&Physical ---
Date of Encounter: 06/28/17 Time of Encounter: 16:45 Assessment and Plan (1) Lightheaded Current visit: No Status: Acute Suspect multifactorial etiology including medications with possible hypovolemia. I will hold her Flexeril and hydrochlorothiazide. IV fluids will be given. Orthostatic vital signs and repeat labs will be done in a.m. (2) Anemia Current visit: No Status: Acute Improved. Qualifiers: Anemia type: unspecified type Qualified Code(s): D64.9 - Anemia, unspecified (3) Azotemia Current visit: No Status: Resolved Will hold HCTZ and give IV fluids. Recheck labs in a.m. (4) Weight loss Current visit: No Status: Acute TSH was normal in ER at 1.129. She states she has changed her diet since last admission in January 2017 by eating more healthfully. Internal Medicine - H&P: HPI Chief complaint: Lightheadedness Admitted From: Home Plans for Post Hospital Care: Home History of present illness: Ms. Harmon is a 66 year old female who came to the emergency room from a local urgent care stating she had onset of lightheadedness approximately 3 PM yesterday while standing. Her symptoms improved slightly after she had taken a nap but were still present. She slept through the night but awakened this morning with symptoms still present. She went to a local urgent care and was referred to emergency room after she was found to have blood pressure of 80 palpable and bradycardia and heart rate in the 50s. She was admitted to [facility] floor for ongoing care needs. She states she feels improved at the present time. She denies orthostatic symptoms on arising from seated position over the past few days. She does not check her blood pressure regularly at home. Her cardiovascular history is significant for hypertension but no known CA heart failure angina DVT or pulmonary embolus. She has not had a stress test or heart catheter done. Her neurologic history is pertinent for possible TIA 2002 with slurred speech. She has had no recurrence. She has DPN. She denies large distribution strokes or seizures. She states she has had numerous syncopal episodes since age 18 associated with vertigo and tunnel vision. No etiology has been found for these. She states they have lessened since her January 2017 [facility] hospitalization for syncope. Past Med Surg Social Fam HX - Past Medical History Medical history: diabetes, hyperlipidemia, hypertension Psychiatric history: anxiety, depression, prior suicide attempt, previous psychiatric hospitalization - Past Surgical History Surgical History: cholecystectomy, hysterectomy - Social History Smoking Status: Never smoker Smokeless Tobacco Status: No Alcohol use: none Drug use: none Internal Medicine - H&P: Meds Insulin ASPART [NovoLOG] 0 unit SQ TID PRN #0 06/27/15 [History] Insulin Glargine,Hum.rec.anlog [Lantus Solostar] 15 unit SQ BID 06/27/15 [ History] Lisinopril [Zestril] 20 mg PO DAILY #0 06/27/15 [History] Magnesium Oxide [Mag-Ox] 400 mg PO BID #6 tablet 07/01/16 [Rx] HYDROcodone/Acet 5/325 mg [[place] 5-325 mg] 1 tab PO Q6H #20 tab 01/11/17 [Rx] OxyCODONE Immed Rel [Roxicodone 5 MG] 5 mg PO Q6HR PRN #28 tablet 01/22/17 [Rx] Aspirin 81 mg PO DAILY 01/23/17 [History] Calcium Carbonate/Vitamin D3 [Calcium 500 + Vit D Caplet] 1 each PO BID [History] Cyclobenzaprine [Flexeril] 10 mg PO BID 01/23/17 [History] Ferrous Sulfate [Iron] 325 mg PO DAILY 01/23/17 [History] Gabapentin [Neurontin] 300 mg PO DAILY 01/23/17 [History] Gemfibrozil [Lopid] 600 mg PO BID 01/23/17 [History] Linagliptin/Metformin HCl [Jentadueto 2.5 mg-1000 mg Tab] 1 each PO BID [History] Paroxetine HCl [Paxil] 40 mg PO DAILY 01/23/17 [History] Trazodone HCl 100 mg PO HS 01/23/17 [History] glyBURIDE [GlyBURIDE] 10 mg PO BID 01/23/17 [History] hydroCHLOROthiazide [Hydrochlorothiazide] 25 mg PO DAILY 01/23/17 [History] risperiDONE [Risperdal] 4 mg PO HS 01/23/17 [History] 3 Allergy/AdvReac Type Severity Reaction Status Date / Time iodine Allergy Hives Verified 06/28/17 10:38 All Systems PM: A 10-system review of systems was performed and is negative for pertinent findings except as documented above in the HPI. Review of systems: Review of systems from January 2017 [facility] hospitalization were reviewed and revised as below. Gen.: Her weight has decreased from 77.593 kg at the June 2016 discharge to 65.317 kg at present. This was unintentional Cardiovascular: As per history of present illness Respiratory: She smoked for approximately 16 months 10 years ago. She denies chronic lung disease. She had pulmonary function testing October 2012 which showed FEV1/FVC ratio of 0.85. Her MVV was 55% predicted. The residual volume was elevated at 136% consistent with air trapping. She wears oxygen at bedtime. She does not know the diagnosis for the oxygen use. GI: She has had cholecystectomy. She denies disorders of her liver or exocrine pancreas : She has occasional UTIs. She denies other kidney or bladder disorders Neurologic: As per history of present illness Endocrine: She was diagnosed DM 2 approximately 20 years ago. She has hyperlipidemia but no known thyroid disease Hematology/oncology: She had anemia workup during the January 2017 hospitalization which showed iron 36, transferrin saturation 14%, transferrin 189, ferritin 511, B12 499, and folate 16.7. She denies internal malignancies Psychiatric: She has diagnoses of depression, anxiety, and schizophrenia. She states she is seen by a therapist at [facility] 3 times weekly but has not seen a physician/nurse practitioner there since July 2015. [place] skeletal: She has DJD and occasional feelings of leg weakness. She denies other bone joint or muscle disorders. - Constitutional Vitals: Temp Pulse Resp BP Pulse Ox 97.1 F L 60 14 116/60 96 06/28/17 10:47 06/28/17 14:27 06/28/17 14:27 06/28/17 14:27 06/28/17 14:27 Exam: Renal: She is a well-developed well-nourished female appears in no acute distress. She is slightly lethargic. HEENT: Head is atraumatic and normocephalic. Eyes: EOMI. There is no scleral icterus. Mouth: Mucosa is moist. Neck: Supple and nontender. There is no thyromegaly or adenopathy noted. Heart: Regular without murmurs gallops or ectopics Lungs: No wheezes or crackles are heard. Abdomen: Soft and nontender. No masses or guarding noted. Extremities: There is no cyanosis edema or clubbing noted. Dorsalis pedis and posttibial pulses are trace palpable bilaterally. Neurologic: Mental status: She is slightly lethargic but answers questions appropriately. Cranial nerves: Smile is symmetric. Forehead wrinkles bilaterally. Tongue protrudes midline. EOMI. Motor: There is no pronator drift. Cerebellar: Finger to nose is intact bilaterally. Skin: Warm and dry Internal Med - H&P Results - Labs CBC & Chem 7: 06/28/17 11:31 06/28/17 11:31
[2017-06-28] MEDS ORDERED: Magnesium Oxide 400 MG TABLET PO SCH (21:00)
[2017-06-28] MEDS ORDERED: Insulin DETEMIR 100 UNIT/ML X5UNITS SQ SCH (21:00)
[2017-06-28] MEDS ORDERED: traZODone 50 MG TABLET PO SCH (21:00)
[2017-06-28] MEDS ORDERED: risperiDONE 1 MG TABLET PO SCH ×2 (21:00)
[2017-06-28 22:03] LABS: Hemoglobin A1C 7.8 %
[2017-06-28] MEDS: *HR* GlyBURIDE 5 MG TABLET PO SCH (22:23)
[2017-06-28] MEDS: (Linagliptin/Metformin Hcl [Jentadueto 2.5 Mg-1000 Mg) PO SCH (22:25)
[2017-06-28] MEDS: (Calcium Carbonate/Vitamin D3 [Calcium 500 + Vit D Ca) PO SCH (22:25)
[2017-06-29] MEDS: *HR* HYDROcodone/Acet 5/325 mg TABLET PO SCH ×2 (02:00→09:43)
[2017-06-29 06:21] LABS: Basophils % 0.5 %; Eosinophils # 0.4 K/mcL (0.0-0.6); Hematocrit 30.9 % (35.3-44.9); Hemoglobin 10.3 g/dL (11.5-15.4); Immature Granulocytes % 0.3 % (0-4); Lymphocytes # 1.8 K/mcL (0.6-4.6); Lymphocytes % 23.5 %; Mean Corpuscular HGB Conc 33.3 g/dL (31.6-35.5); Mean Corpuscular Hemoglobin 27.5 pg (28.0-33.3); Mean Corpuscular Volume 82.6 fL (83.0-100.0); Mean Platelet Volume 11.1 fL (9.4-12.4); Monocytes # 0.4 K/mcL (0.0-1.3); Monocytes % 4.6 %; Platelet Count 324 K/mcL (140-400); Red Blood Count 3.74 M/mcL (3.82-4.97); Red Cell Distribution Width 13.2 % (11.5-14.5); Segmented Neutrophils % 66.1 %
[2017-06-29 06:35] LABS: BUN/Creatinine Ratio 35 (6-26); Blood Urea Nitrogen 29 mg/dL (7-20); Calcium 9.5 mg/dL (8.6-10.8); Carbon Dioxide 25 mEq/L (19-29); Chloride 104 mEq/L (98-109); Glucose 122 mg/dL (70-99); Osmolality,Calculated 297 (280-300); Potassium 3.9 mEq/L (3.5-4.5); Sodium 140 mEq/L (136-145); eGFR For African Americans > 60 (> 60); eGFR For Non-African Americans > 60 (> 60)
--- NOTE | 2017-06-29 08:09 | Electrocardiograph Report ---
[address] [place], [place] [address] Test Date: 2017-06-28 Pat Name: Whit Harmon Department: [id number] Room: [facility] Gender: F [employer]: JEOVANY : 1950 Requested By: Dori Wilson Order Number: [id number] Reading MD: Philippe Villegas MD Measurements Intervals [place] Rate: 59 P: 50 ME: 171 QRS: 34 QRSD: 85 T: 70 QT: 456 QTc: 456 Interpretive Statements SINUS BRADYCARDIA Electronically Signed On 06-29-2017 6:38:04 EDT by Philippe Villegas MD
[2017-06-29] MEDS ORDERED: Gabapentin 300 MG CAPSULE PO SCH (09:00)
[2017-06-29] MEDS ORDERED: Insulin DETEMIR 100 UNIT/ML X5UNITS SQ SCH (09:00)
[2017-06-29] MEDS ORDERED: Aspirin 81 MG TAB.CHEW PO SCH (09:00)
[2017-06-29] MEDS ORDERED: hydroCHLOROthiazide 25 MG TABLET PO SCH (09:00)
[2017-06-29 09:37] VITALS: BP 137/67
[2017-06-29] MEDS: Insulin LISPRO 300 UNITS/3 ML VIAL SQ SCH (09:43)
[2017-06-29] MEDS: *HR* GlyBURIDE 5 MG TABLET PO SCH (09:45)
[2017-06-29] MEDS: (Calcium Carbonate/Vitamin D3 [Calcium 500 + Vit D Ca) PO SCH (09:46)
[2017-06-29] MEDS: (Linagliptin/Metformin Hcl [Jentadueto 2.5 Mg-1000 Mg) PO SCH (09:46)
--- NOTE | 2017-06-29 10:19 | Discharge Summary ---
Date of Encounter: 06/29/17 Time of Encounter: 10:10 - Discharge Diagnosis (1) Lightheaded Priority: Primary Status: Resolved (2) Anemia Priority: Secondary Status: Acute Qualifiers: Anemia type: unspecified type Qualified Code(s): D64.9 - Anemia, unspecified (3) Azotemia Priority: Secondary Status: Acute (4) Weight loss Priority: Secondary Status: Acute - Discharge Medications Home Medications: Insulin ASPART [NovoLOG] 0 unit SQ TID PRN #0 06/27/15 [History] Insulin Glargine,Hum.rec.anlog [Lantus Solostar] 15 unit SQ BID 06/27/15 [ History] Lisinopril [Zestril] 20 mg PO DAILY #0 06/27/15 [History] HYDROcodone/Acet 5/325 mg [[place] 5-325 mg] 1 tab PO Q6H #20 tab 01/11/17 [Rx] OxyCODONE Immed Rel [Roxicodone 5 MG] 5 mg PO Q6HR PRN #28 tablet 01/22/17 [Rx] Aspirin 81 mg PO DAILY 01/23/17 [History] Calcium Carbonate/Vitamin D3 [Calcium 500 + Vit D Caplet] 1 each PO BID [History] Ferrous Sulfate [Iron] 325 mg PO DAILY 01/23/17 [History] Gabapentin [Neurontin] 300 mg PO DAILY 01/23/17 [History] Gemfibrozil [Lopid] 600 mg PO BID 01/23/17 [History] Linagliptin/Metformin HCl [Jentadueto 2.5 mg-1000 mg Tab] 1 each PO BID [History] Paroxetine HCl [Paxil] 40 mg PO DAILY 01/23/17 [History] Trazodone HCl 100 mg PO HS 01/23/17 [History] glyBURIDE [GlyBURIDE] 10 mg PO BID 01/23/17 [History] risperiDONE [Risperdal] 2 mg PO HS #0 06/29/17 [Rx] Allergies/Adverse Reactions: 3 Allergy/AdvReac Type Severity Reaction Status Date / Time iodine Allergy Hives Verified 06/28/17 10:38 Date of admission: 06/28/17 13:54 Primary care physician: Jeremiah Villanueva, DO - Patient Status Disposition: Home, Self-Care Condition: Fair Functional capacity at discharge: independent ambulation Overall status at discharge: patient is progressing back to baseline - Discharge Instructions Follow Up With: Jeremiah Villanueva DO [Primary Care Provider] - 1 week - Diet and Activity Activity: resume usual activities as tolerated Diet: advance to your usual diet Hospital course: Ms. Harmon is a 66 year old female who came to the emergency room from a local urgent care stating she had onset of lightheadedness approximately 3 PM yesterday while standing. Her symptoms improved slightly after she had taken a nap but were still present. She slept through the night but awakened this morning with symptoms still present. She went to a local urgent care and was referred to emergency room after she was found to have blood pressure of 80 palpable and bradycardia and heart rate in the 50s. She was admitted to [facility] for ongoing care needs. Initial orders were written by the emergency room physician. I saw her on June 28 and performed the history and physical. She was given IV fluids and her magnesium, Flexeril, and HCTZ were discontinued. Risperdal was reduced to 2 mg at bedtime. Her blood pressure and heart rate returned to satisfactory range. Orthostatic vital signs showed no orthostatic changes the morning of June 29. She felt stable for discharge which I felt was reasonable. She will follow with her PCP Dr. Villanueva within 1 week. - Time Spent with Patient Total time spent providing and/or coordinating discharge services: - Constitutional Vitals: Temp Pulse Resp BP Pulse Ox 98.2 F 71 12 137/67 96 06/29/17 07:28 06/29/17 08:57 06/29/17 07:28 06/29/17 08:57 06/29/17 07:28
== END 2017-06-29 12:52 | disposition home or self-care (01) ==
LOC: EMEROOPIK 10:45 → INPPIK 10:45
PROVIDERS: ADMIT Internal Medicine; ATTEND Internal Medicine

== ENCOUNTER 2019-04-19 14:16 | Observation (INO) ==
--- NOTE | 2019-04-19 14:29 | Emergency Department Note ---
Disposition Clinical Impression: Hyperglycemia due to type 2 diabetes mellitus Qualifiers: Diabetes mellitus termite control servicer insulin use: with senior living use Qualified Code(s): E11.65 - Type 2 diabetes mellitus with hyperglycemia; Z79.4 - USP (current) use of insulin Disposition: Home, Self-Care Condition: Good Referrals: NONE,PCP [Non-Partnered Physician] - Forms: ED Satisfaction Letter, Work/School Release Time of Disposition: 16:40 General Adult HPI - General Chief complaint: ED General Medical Stated complaint: high blood sugar and blood pressure Time Seen by Provider: 04/19/19 14:20 Source: patient, EMS Mode of arrival: EMS Limitations: no limitations Nursing Notes Reviewed: Yes Vital Signs Reviewed: Yes - History of Present Illness HPI Narrative: Patient presents to the ED via EMS with complaints of high glucose and high blood pressure readings at home and generally not feeling well. She states she has felt tired all day and tried taking a nap but did not feel any better. She had a blood sugar reading of high on her home monitor. Per EMS they got a glucose reading of 521 and a blood pressure of 193/96. Patient has been diabetic since 1994 and takes 50 units of Lantus nightly as well as sliding scale NovoLog which averages 12-15 units per dose. States she did take her Lantus last night and she said 12 units of NovoLog with breakfast this morning. Today her sugars were anywhere between 190 and 240. She has had very high readings when she first got diagnosed but is usually well controlled. She has not missed any doses of her medications and denies any recent changes to her medication. She denies any chest pain or shortness of breath. No abdominal pain, nausea, vomiting, diarrhea or constipation. No lightheadedness or dizziness. No URI symptoms or urinary symptoms. States she has not recently been ill. - Related Data Home Medications Medication Instructions Recorded Confirmed Insulin Glargine,Hum.rec.anlog 15 unit SQ TID 06/27/15 04/19/19 [Lantus Solostar] Lisinopril [Zestril] 20 mg PO DAILY #0 06/27/15 04/19/19 Aspirin 81 mg PO DAILY 01/23/17 04/19/19 Ferrous Sulfate [Iron] 325 mg PO DAILY 01/23/17 04/19/19 Gabapentin [Neurontin] 300 mg PO TID 01/23/17 04/19/19 Gemfibrozil [Lopid] 600 mg PO BID 01/23/17 04/19/19 Paroxetine HCl [Paxil] 40 mg PO DAILY 01/23/17 04/19/19 Trazodone HCl 100 mg PO HS 01/23/17 04/19/19 Atenolol 100 mg PO DAILY 12/19/18 04/19/19 Cholecalciferol (Vitamin D3) 5,000 unit PO DAILY 12/19/18 04/19/19 [Vitamin D] glyBURIDE [GlyBURIDE] 5 mg PO DAILY 12/19/18 04/19/19 risperiDONE [RisperDAL] 4 mg PO HS 12/19/18 04/19/19 Meclizine [Antivert] 25 mg PO DAILY PRN 04/19/19 04/19/19 Meloxicam [Mobic] 15 mg PO DAILY 04/19/19 04/19/19 Omeprazole [PriLOSEC] 20 mg PO DAILY 04/19/19 04/19/19 Allergies Allergy/AdvReac Type Severity Reaction Status Date / Time iodine Allergy Hives Verified 07/25/17 16:16 Constitutional: Denies: fever, chills, weakness, weight change Eyes: Denies: eye pain, eye discharge, vision change ENT ED: Denies: ear pain, throat pain, dental pain, hearing loss, epistaxis, congestion, dysphagia Cardiovascular: Denies: chest pain, palpitations, dyspnea on exertion, edema, syncope Respiratory: Denies: cough, dyspnea, wheezes, hemoptysis, stridor Gastrointestinal: Denies: abdominal pain, nausea, vomiting, diarrhea, constipation, hematemesis, melena, hematochezia Genitourinary: Denies: dysuria, frequency, hematuria, discharge Musculoskeletal: Denies: back pain, neck pain, arthralgia, myalgia Integumentary: Denies: rash, abrasion, lesions Neurological: Denies: headache, weakness, numbness, paresthesias, confusion, abnormal gait, vertigo Psychiatric: Denies: anxiety, depression, suicidal thoughts, homicidal thoughts, auditory hallucinations, visual hallucinations Endocrine: Reports: fatigue Hematological/Lymphatic: Denies: easy bleeding, easy bruising Allergic/Immunologic: Denies: facial swelling, urticaria Past Medical History - Past Medical History Medical history: Reports: diabetes, hyperlipidemia, hypertension Surgical history: Reports: cholecystectomy, hysterectomy Psychiatric history: Reports: anxiety, depression, prior suicide attempt, previous psychiatric hospitalization - Social History Smoking Status: Never smoker Smokeless Tobacco Status: No Alcohol use: Reports: none Drug use: Reports: none Physical Exam - General Limitations: no limitations General appearance: alert, in no apparent distress - Head Head exam: atraumatic, normocephalic, normal inspection - Eye Eye exam: Present: normal appearance, PERRL, EOMI - ENT ENT exam: normal exam, normal oropharynx, mucous membranes moist - Neck Neck exam: Present: normal inspection, full ROM, trachea midline - Chest Chest inspection: Present: normal inspection, symmetric chest wall rise - Respiratory Respiratory exam: Present: normal lung sounds bilaterally - Cardiovascular Cardiovascular exam: Present: regular rate, normal rhythm, normal heart sounds - Abdominal Exam Abdominal exam: Present: soft, Non-Tender, tenderness, normal bowel sounds. Absent: distention, guarding, rebound, rigidity Abdominal tenderness: Present: RUQ, RLQ, LUQ - Extremities Exam Extremities exam: Present: normal inspection, full ROM. Absent: tenderness, pedal edema - Back Exam Back exam: Present: normal inspection, full ROM. Absent: tenderness, CVA tenderness (R), CVA tenderness (L) - Neurological Exam Neurological exam: Present: alert, oriented X3 - Psychiatric Psychiatric exam: Present: normal affect, normal mood - Skin Skin exam: Present: warm, dry, intact, normal color Course Course Narrative: Patient presents to the ED with high glucose and high blood pressure readings. On arrival here finished a glucose was 590 and 563. Blood pressure is 186/92. Physical exam is unremarkable other than patient does have some mild abdominal tenderness in the left and right upper quadrant and right lower quadrant although she has no abdominal pain otherwise. Will start IV fluids, give insulin and obtain lab work to assess for DKA versus simple hyperglycemia. Unclear what may trigger the hyperglycemic episode at this time. Will monitor blood pressure and treat that as needed as well. - Reevaluation(s) Reevaluation #1: Glucose is in the 500s on serum. PH is normal and her beta hydroxybutyric acid is only mildly elevated. After first dose of insulin and 2 L of fluid glucose was down to 441 and 47. We will give additional insulin and continue IV fluids. Patient's creatinine is elevated above baseline as well. Discussed with patient admission for further management of her glucose and acute kidney injury and she is in agreement. Paging the hospitalist at this time. Time: 16:27 Reevaluation #2: I spoke to the hospitalist, Dr. Jensen, who has agreed to admit the patient. Time: 16:34 Vital Signs Temperature 99 F 04/19/19 14:24 Pulse Rate 76 04/19/19 14:24 Respiratory Rate 18 04/19/19 14:24 Blood Pressure 189/92 04/19/19 14:24 O2 Sat by Pulse Oximetry 97 04/19/19 14:24 Temperature 99 F 04/19/19 14:24 Pulse Rate 76 04/19/19 16:01 Respiratory Rate 18 04/19/19 16:01 Blood Pressure 159/98 04/19/19 16:01 O2 Sat by Pulse Oximetry 97 04/19/19 16:01 Oxygen Delivery Oxygen Delivery Room Air Medical Decision Making - Medical Records Medical records reviewed: Yes I reviewed the patient's medical records. - Lab Data Lab results reviewed: Yes I reviewed the patient's lab results. Result diagrams: 04/19/19 14:48 04/19/19 14:48 Lab Results 04/19/19 04/19/19 04/19/19 Range/Units 14:40 14:48 14:48 WBC 7.8 (4.3-11.1) K/mcL RBC 4.35 (3.82-4.97) M/mcL Hgb 11.9 (11.5-15.4) g/dL Hct 36.1 (35.3-44.9) % MCV 83.0 (83.0-100.0) fL MCH 27.4 L (28.0-33.3) pg MCHC 33.0 (31.6-35.5) g/dL RDW 13.1 (11.5-14.5) % Plt Count 261 (140-400) K/mcL MPV 10.9 (9.4-12.4) fL Immature Gran % 0.3 (0-4) % Seg Neutrophils % 67.1 % Lymphocytes % 24.5 % Monocytes % 4.2 % Eosinophils % 2.9 % Basophils % 1.0 % Neutrophils # 5.3 (1.6-8.9) K/mcL Lymphocytes # 1.9 (0.6-4.6) K/mcL Monocytes # 0.3 (0.0-1.3) K/mcL Eosinophils # 0.2 (0.0-0.6) K/mcL Basophils # 0.1 (0.0-0.2) K/mcL VBG pH (7.32-7.42) pH Units VBG pCO2 (41-51) mmHg VBG pO2 (25-50) mmHg VBG HCO3 (21-27) mEq/L Sodium 131 L (136-145) mEq/L Potassium 3.9 (3.5-5.1) mEq/L Chloride 94 L (98-107) mEq/L Carbon Dioxide 26 (23-29) mEq/L BUN 20 (8-23) mg/dL Creatinine 1.64 H (0.60-1.20) mg/dL Est GFR ( Amer) 38 L (> 60) Est GFR (Non-Af Amer) 31 L (> 60) BUN/Creatinine Ratio 12 (6-26) Glucose 551 H* (70-105) mg/dL Calculated Osmolality 300 (280-300) Calcium 8.8 (8.6-10.3) mg/dL Total Bilirubin 0.2 L (0.3-1.0) mg/dL AST 12 L (13-39) Units/L ALT 12 (7-52) Units/L Alkaline Phosphatase 112 H (34-104) Units/L Serum Total Protein 6.7 (6.4-8.9) g/dL Albumin 3.2 L (3.5-5.7) g/dL Globulin 3.5 (2.4-3.5) g/dL Albumin/Globulin Ratio 0.9 L (1.1-2.2) Lipase 33 (11-82) Units/L Beta-Hydroxybutyric Acd (0.02-0.27) mmol/L Urine Color Light Yellow (Yellow) Urine Clarity Clear (Clear) Urine pH 7.0 (5.0-8.0) pH Units Ur Specific [place] 1.020 (1.010-1.025) Urine Protein >=300 H (Neg-Trace) mg/dL Urine Glucose (UA) 500 H (Normal) mg/dL Urine Ketones Negative (Negative) mg/dL Urine Blood Small H (Negative) Urine Nitrite Negative (Negative) Urine Bilirubin Negative (Negative) Urine Urobilinogen Normal (Normal) mg/dL Ur Leukocyte Esterase Negative (Negative) Urine Microscopic RBC 0-3 (0-3) per hpf Urine Microscopic WBC 0-3 (0-3) per hpf Ur Squamous Epith Cells Few (None-Few) per lpf Urine Bacteria Few (None-Few) per hpf Urine Mucus Few (Few) Ur Culture Indicated? YES A (NO) 04/19/19 04/19/19 Range/Units 14:48 15:03 WBC (4.3-11.1) K/mcL RBC (3.82-4.97) M/mcL Hgb (11.5-15.4) g/dL Hct (35.3-44.9) % MCV (83.0-100.0) fL MCH (28.0-33.3) pg MCHC (31.6-35.5) g/dL RDW (11.5-14.5) % Plt Count (140-400) K/mcL MPV (9.4-12.4) fL Immature Gran % (0-4) % Seg Neutrophils % % Lymphocytes % % Monocytes % % Eosinophils % % Basophils % % Neutrophils # (1.6-8.9) K/mcL Lymphocytes # (0.6-4.6) K/mcL Monocytes # (0.0-1.3) K/mcL Eosinophils # (0.0-0.6) K/mcL Basophils # (0.0-0.2) K/mcL VBG pH 7.38 (7.32-7.42) pH Units VBG pCO2 43 (41-51) mmHg VBG pO2 60 H (25-50) mmHg VBG HCO3 25 (21-27) mEq/L Sodium (136-145) mEq/L Potassium (3.5-5.1) mEq/L Chloride (98-107) mEq/L Carbon Dioxide (23-29) mEq/L BUN (8-23) mg/dL Creatinine (0.60-1.20) mg/dL Est GFR ( Amer) (> 60) Est GFR (Non-Af Amer) (> 60) BUN/Creatinine Ratio (6-26) Glucose (70-105) mg/dL Calculated Osmolality (280-300) Calcium (8.6-10.3) mg/dL Total Bilirubin (0.3-1.0) mg/dL AST (13-39) Units/L ALT (7-52) Units/L Alkaline Phosphatase (34-104) Units/L Serum Total Protein (6.4-8.9) g/dL Albumin (3.5-5.7) g/dL Globulin (2.4-3.5) g/dL Albumin/Globulin Ratio (1.1-2.2) Lipase (11-82) Units/L Beta-Hydroxybutyric Acd 0.30 H (0.02-0.27) mmol/L Urine Color (Yellow) Urine Clarity (Clear) Urine pH (5.0-8.0) pH Units Ur Specific [place] (1.010-1.025) Urine Protein (Neg-Trace) mg/dL Urine Glucose (UA) (Normal) mg/dL Urine Ketones (Negative) mg/dL Urine Blood (Negative) Urine Nitrite (Negative) Urine Bilirubin (Negative) Urine Urobilinogen (Normal) mg/dL Ur Leukocyte Esterase (Negative) Urine Microscopic RBC (0-3) per hpf Urine Microscopic WBC (0-3) per hpf Ur Squamous Epith Cells (None-Few) per lpf Urine Bacteria (None-Few) per hpf Urine Mucus (Few) Ur Culture Indicated? (NO)
[2019-04-19] MEDS ORDERED: Insulin Regular, Human 100 UNIT/ML IV ONE ×2 (14:30→16:08)
[2019-04-19] MEDS ORDERED: 0.9 % Sodium Chloride 1,000 ML IVC ONE ×2 (14:30→14:31)
[2019-04-19 14:49] LABS: Bilirubin,Urine Negative (Negative); Blood,Urine Small (Negative); Clarity,Urine Clear (Clear); Glucose,Urine (UA) 500 mg/dL (Normal); Ketones,Urine Negative (Negative); Leukocyte Esterase,Urine Negative (Negative); Nitrite,Urine Negative (Negative); Protein,Urine >=300 mg/dL (Neg-Trace); Urobilinogen,Urine Normal (Normal)
[2019-04-19 14:50] LABS: Color,Urine Light Yellow (Yellow)
[2019-04-19 14:57] LABS: Bacteria,Urine Few per hpf (None-Few); Mucus,Urine Few (Few); RBC,Urine 0-3 per hpf (0-3); Squamous Epithelial Cell,Urine Few per lpf (None-Few); WBC,Urine 0-3 per hpf (0-3)
[2019-04-19 15:00] LABS: Basophils # 0.1 K/mcL (0.0-0.2); Eosinophils # 0.2 K/mcL (0.0-0.6); Eosinophils % 2.9 %; Hematocrit 36.1 % (35.3-44.9); Hemoglobin 11.9 g/dL (11.5-15.4); Immature Granulocytes % 0.3 % (0-4); Lymphocytes # 1.9 K/mcL (0.6-4.6); Lymphocytes % 24.5 %; Mean Corpuscular Hemoglobin 27.4 pg (28.0-33.3); Mean Platelet Volume 10.9 fL (9.4-12.4); Monocytes # 0.3 K/mcL (0.0-1.3); Monocytes % 4.2 %; Neutrophils # 5.3 K/mcL (1.6-8.9); Platelet Count 261 K/mcL (140-400); Red Blood Count 4.35 M/mcL (3.82-4.97); Red Cell Distribution Width 13.1 % (11.5-14.5); Segmented Neutrophils % 67.1 %; White Blood Count 7.8 K/mcL (4.3-11.1)
[2019-04-19 15:06] LABS: VBG HCO3 25 mEq/L (21-27); VBG PCO2 43 mmHg (41-51); VBG PH 7.38 pH Units (7.32-7.42); VBG PO2 60 mmHg (25-50)
[2019-04-19 15:21] LABS: Albumin 3.2 g/dL (3.5-5.7); Albumin/Globulin Ratio 0.9 (1.1-2.2); Bilirubin,Total 0.2 mg/dL (0.3-1.0); Calcium 8.8 mg/dL (8.6-10.3); Globulin 3.5 g/dL (2.4-3.5); Potassium 3.9 mEq/L (3.5-5.1); Total Protein 6.7 g/dL (6.4-8.9)
[2019-04-19] MEDS ORDERED: 0.9 % Sodium Chloride 1,000 ML IVC SCH (16:15)
[2019-04-19] MEDS ORDERED: Naloxone 0.4 MG/ML INJ IVP PRN ×2 (16:35→17:14)
[2019-04-19] MEDS ORDERED: D5% in Water 1,000 ML IVC PRN ×2 (16:36→17:14)
[2019-04-19] MEDS ORDERED: *HR* Dextrose 50 % in Water (Syg) 50 ML SYRINGE IVP PRN (16:36)
[2019-04-19] MEDS ORDERED: Dextrose Gel 15 GM/37.5 ML TUBE PO PRN ×4 (16:36→17:14)
[2019-04-19] MEDS ORDERED: *HR* Dextrose 50 % in Water (Vial) 50 ML VIAL IVP PRN (17:14)
[2019-04-19] MEDS: 0.9 % Sodium Chloride 1,000 ML IVC SCH ×2 (18:14→23:10)
[2019-04-19] MEDS: Gabapentin 300 MG CAPSULE PO SCH (20:14)
[2019-04-19] MEDS: Insulin DETEMIR 100 UNIT/ML X5UNITS SQ SCH (20:24)
[2019-04-19] MEDS: Insulin LISPRO 300 UNITS/3 ML VIAL SQ SCH (20:25)
[2019-04-19] MEDS ORDERED: risperiDONE 1 MG TABLET PO SCH (21:00)
[2019-04-19] MEDS ORDERED: Insulin DETEMIR 100 UNIT/ML X5UNITS SQ SCH (21:00)
[2019-04-19] MEDS ORDERED: Insulin LISPRO 300 UNITS/3 ML VIAL SQ SCH (21:00)
[2019-04-19] MEDS ORDERED: traZODone 50 MG TABLET PO SCH (21:00)
[2019-04-20] MEDS ORDERED: Insulin LISPRO 300 UNITS/3 ML VIAL SQ SCH (07:30)
[2019-04-20] MEDS: Insulin LISPRO 300 UNITS/3 ML VIAL SQ SCH ×4 (07:38→21:09)
[2019-04-20] MEDS: Cholecalciferol (D-3) 1,000 UNIT (25MCG) TABLET PO SCH (08:04)
[2019-04-20] MEDS: *HR* GlyBURIDE 5 MG TABLET PO SCH (08:04)
[2019-04-20] MEDS: 0.9 % Sodium Chloride 1,000 ML IVC SCH ×2 (08:04→16:36)
[2019-04-20] MEDS: Aspirin 81 MG TAB.CHEW PO SCH (08:05)
[2019-04-20] MEDS: Gabapentin 300 MG CAPSULE PO SCH ×3 (08:05→21:04)
[2019-04-20] MEDS ORDERED: Lisinopril 20 MG TABLET PO SCH (09:00)
--- NOTE | 2019-04-20 10:31 | Electrocardiograph Report ---
[address] [address] Test Date: 2019-04-19 Pat Name: Whit Harmon Department: EDP-14 Room: [facility] Gender: F Clinical Unit Educator: : 1950 Requested By: Sonja Torres Order Number: [id number] Reading MD: Anne-Marie Landry Measurements Intervals [place] Rate: 77 P: 73 MI: 166 QRS: 58 QRSD: 88 T: 71 QT: 403 QTc: 457 Interpretive Statements Sinus rhythm Electronically Signed On 04-20-2019 10:30:27 EDT by Anne-Marie Landry
--- NOTE | 2019-04-20 14:23 | Internal Med History&Physical ---
Date of Encounter: 04/20/19 Time of Encounter: 13:45 Assessment and Plan (1) Hyperglycemia Current visit: Yes Status: Acute She was given Levemir and Humulin R in emergency room with IV fluids. Blood glucose has returned to acceptable range. (2) DM type 2 (diabetes mellitus, type 2) Current visit: Yes Status: Acute Hemoglobin A1c was 9.0% on 11/28/2018. Recheck in a.m. Qualifiers: Diabetes mellitus fdc insulin use: with strategic partnership representative use Diabetes mellitus complication status: with kidney complications Diabetes mellitus complication detail: with chronic kidney disease Chronic kidney disease stage: stage 3 (moderate) Qualified Code(s): E11.22 - Type 2 diabetes mellitus with diabetic chronic kidney disease; N18.3 - Chronic kidney disease, stage 3 (moderate); Z79.4 - skilled nursing (current) use of insulin (3) Azotemia Current visit: No Status: Acute Hold lisinopril and Mobic. Monitor renal indices. (4) Hyperuricemia Current visit: Yes Status: Acute Uric acid level was 7.4 on 07/01/2016. Recheck in a.m. (5) Anxiety and depression Current visit: Yes Status: Acute Continue Paxil and risperidone (6) Schizophrenia Current visit: Yes Status: Chronic Continue Paxil and risperidone Qualifiers: Schizophrenia type: unspecified Qualified Code(s): F20.9 - Schizophrenia, unspecified (7) Hypertension Current visit: Yes Status: Chronic Continue atenolol. Hold lisinopril to see if azotemia improves. Qualifiers: Hypertension type: essential hypertension Qualified Code(s): I10 - Essential (primary) hypertension Internal Medicine - H&P: HPI Chief complaint: Hyperglycemia, hypertension Admitted From: Emergency Dept Plans for Post Hospital Care: Home History of present illness: Ms. Harmon is a 68 year old female who came to emergency room stating she had hyperglycemia the day of admission upon awakening. She reports her glucose meter read "high". She did not check her blood pressure at home but felt it might be elevated. When she did not improve after a few hours she called EMS. Blood pressure was found to be 193/96 and blood glucose 521. She was brought to emergency room and admitted to [facility] floor for ongoing care needs. She states she does not feel improved at the present time. She feels slightly more dyspneic and reports a nonproductive cough. She smoked for approximately 16 months around 2007.. She denies chronic lung disease. She had pulmonary function testing October 2012 which showed FEV1/FVC ratio of 0.85. Her MVV was 55% predicted. The residual volume was elevated at 136% consistent with air trapping. She wears oxygen at bedtime. She does not know the diagnosis for the oxygen use. She was diagnosed with DM 2 approximately 1997. She has hyperlipidemia but no known thyroid disease Past Med Surg Social Fam HX - Past Medical History Medical history: diabetes, GERD, hyperlipidemia, hypertension Additional medical history: H.pylori, gastritits, dyspepsia, leg cramps, depression Psychiatric history: anxiety, depression, prior suicide attempt, previous psychiatric hospitalization - Past Surgical History Surgical History: cholecystectomy, hysterectomy Additional surgical history: Colonoscopy 2012 - Social History Smoking Status: Never smoker Smokeless Tobacco Status: No Alcohol use: none Drug use: none Internal Medicine - H&P: Meds Insulin Glargine,Hum.rec.anlog [Lantus Solostar] 15 unit SQ TID 06/27/15 [History] Lisinopril [Zestril] 20 mg PO DAILY #0 06/27/15 [History] Aspirin 81 mg PO DAILY 01/23/17 [History] Ferrous Sulfate [Iron] 325 mg PO DAILY 01/23/17 [History] Gabapentin [Neurontin] 300 mg PO TID 01/23/17 [History] Gemfibrozil [Lopid] 600 mg PO BID 01/23/17 [History] Paroxetine HCl [Paxil] 40 mg PO DAILY 01/23/17 [History] Trazodone HCl 100 mg PO HS 01/23/17 [History] Atenolol 100 mg PO DAILY 12/19/18 [History] Cholecalciferol (Vitamin D3) [Vitamin D] 5,000 unit PO DAILY 12/19/18 [History] glyBURIDE [GlyBURIDE] 5 mg PO DAILY 12/19/18 [History] risperiDONE [RisperDAL] 4 mg PO HS 12/19/18 [History] Meclizine [Antivert] 25 mg PO DAILY PRN 04/19/19 [History] Meloxicam [Mobic] 15 mg PO DAILY 04/19/19 [History] Omeprazole [PriLOSEC] 20 mg PO DAILY 04/19/19 [History] Allergy/AdvReac Type Severity Reaction Status Date / Time iodine Allergy Hives Verified 07/25/17 16:16 All Systems PM: A 10-system review of systems was performed and is negative for pertinent findings except as documented above in the HPI. Review of systems: Review of systems from June 2017 [facility] hospitalization were reviewed and revised as below. Gen.: Her weight decreased from 77.593 kg at the June 2016 discharge to 65.317 kg at the June 2017 admission but has increased to 78.925 kg at present Cardiovascular: She has history of hypertension but no known [place] heart failure angina DVT or pulmonary embolus. She has not had a stress test or heart catheter done. Echocardiogram 03/26/2018 showed LVEF of 60%. There was mild aortic regurgitation but no evidence of pulmonary hypertension. Color Doppler suggested a small PFO with [id number] shunt. The interventricular septum and posterior wall thickness measurements were 1.20 cm each. There was LAE at 4.20 cm. E/A ratio was 0.7. Respiratory: As per history of present illness GI: She has had cholecystectomy. She denies disorders of her liver or exocrine pancreas : She has occasional UTIs. She denies other kidney or bladder disorders Neurologic: She had a possible TIA 2002 with slurred speech. She has had no recurrence. She has DPN. She denies large distribution strokes or seizures. She states she has had numerous syncopal episodes since age 18 associated with vertigo and tunnel vision. No etiology has been found for these. Endocrine: She was diagnosed DM 2 approximately 20 years ago. She has hyperlipidemia but no known thyroid disease Hematology/oncology: She had anemia workup during the January 2017 hospitalization which showed iron 36, transferrin saturation 14%, transferrin 189, ferritin 511, B12 499, and folate 16.7. She denies internal malignancies Psychiatric: She has diagnoses of depression, anxiety, and schizophrenia. She states she is seen by a therapist at [facility] 5 times weekly. [place] skeletal: She has DJD and occasional feelings of leg weakness. She denies other bone joint or muscle disorders. - Constitutional Vitals: Temp Pulse Resp BP Pulse Ox 97.8 F 60 16 135/82 98 04/20/19 11:00 04/20/19 11:00 04/20/19 11:00 04/20/19 11:04/20/19 11:00 Exam: Gen.: She is a well developed well-nourished female resting comfortably in bed who appears in no acute distress. HEENT: Head is atraumatic and normocephalic. Eyes: EOMI. There is no scleral icterus. Mouth: Mucosa is moist. Neck: Supple and nontender. There is no thyromegaly or adenopathy noted. No meningeal signs are present. Heart: Regular without murmurs gallops or ectopics Lungs: No wheezes or crackles are heard. Abdomen: Soft and nontender. No masses or guarding are noted. Extremities: There is no cyanosis edema or clubbing noted. Dorsalis pedis and posterior tibial pulses are trace to 1+ palpable bilaterally. Neurologic: Mental status: She is lethargic but awakens and answers questions appropriately. She denies pain and states there is minimal dyspnea present at this time. Cranial nerves: Smile is symmetric. Forehead wrinkles bilaterally. Tongue protrudes midline. EOMI. Motor: There is no pronator drift. Cerebellar: Finger to nose is intact bilaterally. Skin: Warm and dry Internal Med - H&P Results - Labs CBC & Chem 7: 04/19/19 14:48 04/19/19 14:48 Labs: Short CBC 04/19/19 Range/Units 14:48 WBC 7.8 (4.3-11.1) K/mcL Hgb 11.9 (11.5-15.4) g/dL Hct 36.1 (35.3-44.9) % Plt Count 261 (140-400) K/mcL Neutrophils # 5.3 (1.6-8.9) K/mcL BMP 04/19/19 14:48 Sodium 131 L Potassium 3.9 Chloride 94 L Carbon Dioxide 26 BUN 20 Creatinine 1.64 H Glucose 551 H* Calcium 8.8 Liver Function 04/19/19 Range/Units 14:48 Total Bilirubin 0.2 L (0.3-1.0) mg/dL AST 12 L (13-39) Units/L ALT 12 (7-52) Units/L Alkaline Phosphatase 112 H (34-104) Units/L Albumin 3.2 L (3.5-5.7) g/dL Urine 04/19/19 Range/Units 14:40 Urine Color Light Yellow (Yellow) Urine Clarity Clear (Clear) Urine pH 7.0 (5.0-8.0) pH Units Ur Specific [place] 1.020 (1.010-1.025) Urine Protein >=300 H (Neg-Trace) mg/dL Urine Glucose (UA) 500 H (Normal) mg/dL - ABG Interpretation ABG results: 04/19/19 15:03 VBG pH 7.38 VBG pCO2 43 VBG pO2 60 H VBG HCO3 25 - VTE Reasons for not Prescribing Prophylaxis: Treatment not Indicated - Low risk for VTE
[2019-04-20] MEDS ORDERED: traZODone 50 MG TABLET PO PRN (14:50)
[2019-04-20] MEDS: risperiDONE 1 MG TABLET PO SCH (21:05)
[2019-04-20] MEDS: Insulin DETEMIR 100 UNIT/ML X5UNITS SQ SCH (21:08)
[2019-04-21] MEDS: Insulin LISPRO 300 UNITS/3 ML VIAL SQ SCH ×4 (07:36→21:43)
[2019-04-21 08:01] LABS: Basophils % 0.7 %; Eosinophils # 0.3 K/mcL (0.0-0.6); Eosinophils % 5.6 %; Hematocrit 33.3 % (35.3-44.9); Hemoglobin 10.6 g/dL (11.5-15.4); Immature Granulocytes % 0.3 % (0-4); Lymphocytes # 1.9 K/mcL (0.6-4.6); Lymphocytes % 32.2 %; Mean Corpuscular HGB Conc 31.8 g/dL (31.6-35.5); Mean Corpuscular Hemoglobin 27.4 pg (28.0-33.3); Mean Platelet Volume 11.1 fL (9.4-12.4); Monocytes # 0.4 K/mcL (0.0-1.3); Monocytes % 7.1 %; Neutrophils # 3.2 K/mcL (1.6-8.9); Platelet Count 209 K/mcL (140-400); Red Blood Count 3.87 M/mcL (3.82-4.97); Red Cell Distribution Width 13.5 % (11.5-14.5); Segmented Neutrophils % 54.1 %; White Blood Count 5.9 K/mcL (4.3-11.1)
[2019-04-21] MEDS: 0.9 % Sodium Chloride 1,000 ML IVC SCH (08:10)
[2019-04-21] MEDS: *HR* GlyBURIDE 5 MG TABLET PO SCH (08:10)
[2019-04-21] MEDS: Gabapentin 300 MG CAPSULE PO SCH ×3 (08:10→21:53)
[2019-04-21] MEDS: Aspirin 81 MG TAB.CHEW PO SCH (08:10)
[2019-04-21] MEDS: Cholecalciferol (D-3) 1,000 UNIT (25MCG) TABLET PO SCH (08:11)
[2019-04-21 09:20] LABS: Calcium 8.3 mg/dL (8.6-10.3); Potassium 3.8 mEq/L (3.5-5.1); Uric Acid 6.3 mg/dL (2.3-7.6)
--- NOTE | 2019-04-21 10:23 | Internal Med Progress Note ---
Date of Encounter: 04/21/19 Time of Encounter: 10:15 - Assessment and plan (1) Hyperglycemia Current Visit: Yes Status: Acute Assessment and plan: April 21. Blood sugars remain acceptable. Hemoglobin A1c is pending. Continue present Rx. (2) DM type 2 (diabetes mellitus, type 2) Current Visit: Yes Status: Acute Assessment and plan: April 21. As above Qualifiers: Diabetes mellitus chcf insulin use: with chcf use Diabetes mellitus complication status: with kidney complications Diabetes mellitus complication detail: with chronic kidney disease Chronic kidney disease stage: stage 3 (moderate) Qualified Code(s): E11.22 - Type 2 diabetes mellitus with diabetic chronic kidney disease; N18.3 - Chronic kidney disease, stage 3 (moderate); Z79.4 - terminal supervisor (current) use of insulin (3) Azotemia Current Visit: No Status: Acute Assessment and plan: April 21. BUN and creatinine are improved at 19 and 1.25 respectively with estimated GFR 43. Continue IV fluids and recheck labs in a.m. (4) Hyperuricemia Current Visit: Yes Status: Acute Assessment and plan: April 21. Uric acid level normal at 6.3. (5) Anxiety and depression Current Visit: Yes Status: Acute Assessment and plan: April 21. Continue Paxil and risperidone (6) Schizophrenia Current Visit: Yes Status: Chronic Assessment and plan: April 21. Continue Paxil and risperidone Qualifiers: Schizophrenia type: unspecified Qualified Code(s): F20.9 - Schizophrenia, unspecified (7) Hypertension Current Visit: Yes Status: Chronic Assessment and plan: April 21. Continue atenolol and remain off lisinopril. Qualifiers: Hypertension type: essential hypertension Qualified Code(s): I10 - Essential (primary) hypertension (8) Urinary tract infection Current Visit: No Status: Acute Assessment and plan: April 21. Urine culture shows MRSA. Start Septra DS with lactobacillus. Qualifiers: Urinary tract infection type: acute cystitis Hematuria presence: without hematuria Qualified Code(s): N30.00 - Acute cystitis without hematuria - Subjective Interval history: April 21. She has no new complaints and feels better - Constitutional Vitals: Temp Pulse Resp BP Pulse Ox 97.6 F 63 17 154/92 96 04/21/19 06:26 04/21/19 06:26 04/21/19 06:26 04/21/19 06:26 04/21/19 06:26 Exam: She is resting comfortably in bed and appears in no acute distress. Her affect is cheerful. She is much more alert and talkative. I reviewed her medications and lab results. Internal Medicine: Result - Labs CBC & Chem 7: 04/21/19 07:43 04/21/19 07:43 Labs: Short CBC 04/21/19 Range/Units 07:43 WBC 5.9 (4.3-11.1) K/mcL Hgb 10.6 L (11.5-15.4) g/dL Hct 33.3 L (35.3-44.9) % Plt Count 209 (140-400) K/mcL Neutrophils # 3.2 (1.6-8.9) K/mcL BMP 04/21/19 07:43 Sodium 142 Potassium 3.8 Chloride 110 H Carbon Dioxide 24 BUN 19 Creatinine 1.25 H Glucose 89 Calcium 8.3 L - VTE Reasons for not Prescribing Prophylaxis: Treatment not Indicated - Low risk for VTE Consult Discharge Plan - Plan Referrals: Jeremiah Villanueva DO [Primary Care Provider] - 1 week
[2019-04-21] MEDS ORDERED: 0.45 % Sodium Chloride w/KCl 20 MEQ/1,000 ML MLS IVC SCH (10:30)
[2019-04-21] MEDS: Lactobacillus 1 EACH CAP.SPRINK PO SCH ×2 (12:44→21:53)
[2019-04-21] MEDS: Sulfamethoxazole/Trimeth DS 1 EACH TABLET PO SCH ×2 (12:44→21:54)
[2019-04-21] MEDS ORDERED: *HR* Propranolol 1 MG/ML VIAL IVP ONE (19:15)
[2019-04-21 19:34] LABS: ABG Base Excess -6 mEq/L (-2 to 3); ABG HCO3 23 mEq/L (21-27); ABG Oxygen Saturation 97 % (95-98); ABG PCO2 59 mmHg (35-45); ABG PO2 111 mmHg (85-104); ABG TCO2 25 mEq/L (20-26)
[2019-04-21] MEDS ORDERED: Ipratropium/Albuterol Neb 3 ML IH STA (19:44)
[2019-04-21] MEDS ORDERED: Furosemide 40 MG/4 ML VIAL ONE (19:49)
[2019-04-21 19:50] LABS: Basophils # 0.1 K/mcL (0.0-0.2); Basophils % 0.6 %; Eosinophils # 0.4 K/mcL (0.0-0.6); Hematocrit 37.5 % (35.3-44.9); Hemoglobin 11.3 g/dL (11.5-15.4); Immature Granulocytes % 0.5 % (0-4); Mean Corpuscular HGB Conc 30.1 g/dL (31.6-35.5); Mean Corpuscular Hemoglobin 27.4 pg (28.0-33.3); Mean Platelet Volume 11.1 fL (9.4-12.4); Monocytes # 0.3 K/mcL (0.0-1.3); Monocytes % 2.6 %; Platelet Count 232 K/mcL (140-400); Red Blood Count 4.12 M/mcL (3.82-4.97); Red Cell Distribution Width 13.8 % (11.5-14.5); Segmented Neutrophils % 77.3 %; White Blood Count 12.5 K/mcL (4.3-11.1)
[2019-04-21 19:51] LABS: Neutrophils # 9.7 K/mcL (1.6-8.9)
[2019-04-21] MEDS: Furosemide 40 MG in 0.9 % Sodium Chloride 100 ML IV STA ×2 (19:52→23:34)
[2019-04-21] MEDS ORDERED: *HR* Labetalol 100 MG/20 ML MDV ONE ×2 (20:00→20:03)
[2019-04-21] MEDS ORDERED: Furosemide 40 MG/4 ML VIAL IVP ONE (20:00)
[2019-04-21] MEDS: *HR* Labetalol 100 MG/20 ML MDV IVP ONE ×2 (20:01→20:08)
[2019-04-21 20:03] LABS: Prothrombin Time 11.1 Seconds (9.4-12.1)
[2019-04-21 20:10] LABS: Troponin I < 0.03 ng/mL (< 0.04)
[2019-04-21 20:17] LABS: BUN/Creatinine Ratio 15 (6-26); Blood Urea Nitrogen 19 mg/dL (8-23); Calcium 8.3 mg/dL (8.6-10.3); Carbon Dioxide 19 mEq/L (23-29); Chloride 105 mEq/L (98-107); Glucose 184 mg/dL (70-105); Osmolality,Calculated 285 (280-300); Potassium 3.9 mEq/L (3.5-5.1); Sodium 134 mEq/L (136-145); eGFR For African Americans 52 (> 60); eGFR For Non-African Americans 43 (> 60)
[2019-04-21 20:34] LABS: Bilirubin,Urine Negative (Negative); Blood,Urine Small (Negative); Clarity,Urine Slightly Cloudy (Clear); Glucose,Urine (UA) 100 mg/dL (Normal); Ketones,Urine Negative (Negative); Leukocyte Esterase,Urine Negative (Negative); Nitrite,Urine Negative (Negative); PH,Urine 6.5 pH Units (5.0-8.0); Protein,Urine >=300 mg/dL (Neg-Trace); Specific Gravity,Urine 1.025 (1.010-1.025); Urobilinogen,Urine Normal (Normal)
[2019-04-21 20:46] LABS: Color,Urine Light Yellow (Yellow)
[2019-04-21 20:49] LABS: Granular Casts,Urine Few per lpf (None Seen); WBC,Urine 50-100 per hpf (0-3)
[2019-04-21 20:50] LABS: Bacteria,Urine Many per hpf (None-Few); Mucus,Urine Few (Few)
[2019-04-21 20:51] LABS: Renal Epithelial Cells,Urine Few per hpf (None-Few)
[2019-04-21 20:52] LABS: Squamous Epithelial Cell,Urine Moderate per lpf (None-Few)
[2019-04-21] MEDS ORDERED: Nitroglycerin 1 INCH/GM PACKET TP ONE (20:52)
[2019-04-21] MEDS ORDERED: *HR* Heparin 5,000 UNIT/ML VIAL IVP PRN ×2 (20:53)
[2019-04-21] MEDS ORDERED: *HR* Heparin 5,000 UNIT/ML VIAL IVP ONE (20:53)
[2019-04-21 20:54] LABS: Hyaline Casts,Urine Few per lpf (None-Few)
[2019-04-21] MEDS ORDERED: Heparin 25,000 UNIT/250 ML D5W 25,000 UNIT/250 ML IV.SOLN IVC SCH (21:00)
[2019-04-21] MEDS: Insulin DETEMIR 100 UNIT/ML X5UNITS SQ SCH (21:44)
[2019-04-21] MEDS: risperiDONE 1 MG TABLET PO SCH (21:53)
[2019-04-21 22:30] VITALS: BP 158/84
--- NOTE | 2019-04-22 10:39 | Emergency Department Note ---
START Narrative - START START: Rapid response was called on this patient which I responded. On arrival to the room they state the patient had gone to the bathroom and then became extremely short of breath and complained of feeling very hot approximately 20 minutes prior. When they helped her back to bed and assessed her oxygen saturations were 78% on room air. They put on 5 L which increased her saturation to 85% and then switch her to a nonrebreather at 15 L which eventually brought her up to 98%. They report she also had a significant decline in her level of consciousness after being completely responsive and able to ambulate without difficulty just shortly prior. The reported a blood pressure 200/100 and a glucose of 174. He had notified the hospitalist who had apparently requested an ABG, chest x-ray and a milligram of Inderal. On my arrival none of these tests had been performed yet. Patient was admitted 2 days ago with a diagnosis of high blood pressure, UTI and hyperglycemia. She is an insulin dependent diabetic. They state her blood pressure had been in the 140s to 150s systolic all day patient and she not had any respiratory complaints. She has no known cardiac or respiratory history. On my assessment patient is lying in bed, fairly flaccid but did respond to name and shaking. She would answer yes and no to my questions indicating that she was having shortness of breath and chest pain. She denied any abdominal pain or nausea. With coaxing she was able to follow some simple commands of moving her arms and legs. On auscultation she had diffuse wheezing and rhonchi throughout both lungs. They began working up the patient with EKG, ABG, chest x-ray and lab work. She was given 1 mg of Inderal that has been previously ordered. Repeat blood pressures did not show any significant decrease. ABG showed a pH of 7.2 with a CO2 of 58.8 and the PO2 of 111. She was switched over to oxygen mask at 8 L and was able to maintain saturations at 92%. Chest x-ray showed on my assessment what appeared to be pulmonary edema. IV Lasix was ordered as well as duo nebs and a roberts catheter was placed. EKG shows normal sinus rhythm at a rate of 86 with nonspecific T- wave changes. Patient continued to maintain her airway and respond when spoken to and therefore I did not feel that emergent intubation was warranted. Additional lab work revealed an elevated d-dimer at 828. BNP was 269. White count was mildly elevated at 12.5. Patient's overall clinical picture appeared to be one of flash pulmonary edema that may have been triggered by fluid she had been given earlier in her admission for her hyperglycemia. There is also a component of significant hypertension. She was given a dose of IV labetalol. [facility] was contacted to make arrangements for transfer as she needed a higher level care than what could be offered at this facility. I spoke to the hospitalist Dr. Shannon murray he requested that the patient the started on nitroglycerin paste and a heparin drip given the elevated d-dimer with plans for CTA after transfer. He also requested she be placed on BiPAP. Patient began to have improvement in her mentation, blood pressure and oxygen saturations as these treatments were implemented. After securing a transfer to [facility] patient was left in the care of of the floor nurses for continued monitoring and management up until transfer.
[2019-04-22 11:00] LABS: Estimated Average Glucose 352 mg/dl
--- NOTE | 2019-04-22 17:10 | Electrocardiograph Report ---
[place] [id number] Test Date: 2019-04-21 Pat Name: Whit Harmon Department: [id number] Room: [facility] Gender: F [employer] Equipment [employer]: Baldev : 1950 Requested By: Sonja Torres Order Number: [id number] Reading MD: Ousmane Landry Measurements Intervals [place] Rate: 86 P: 64 AL: 158 QRS: 72 QRSD: 82 T: 76 QT: 375 QTc: 419 Interpretive Statements SINUS RHYTHM NONSPECIFIC ST & T-WAVE ABNORMALITY Electronically Signed On 04-22-2019 17:08:21 EDT by Ousmane Landry
--- NOTE | 2019-04-23 14:07 | Discharge Summary ---
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 (3) Hyperuricemia Priority: Secondary Status: Acute (4) Anxiety and depression Priority: Secondary Status: Chronic (5) Schizophrenia Priority: Secondary Status: Chronic Qualifiers: Schizophrenia type: unspecified Qualified Code(s): F20.9 - Schizophrenia, unspecified (6) Hypertension Priority: Secondary Status: Chronic Qualifiers: Hypertension type: essential hypertension Qualified Code(s): I10 - Essential (primary) hypertension (7) Urinary tract infection Priority: Secondary Status: Acute Qualifiers: Urinary tract infection type: acute cystitis Hematuria presence: without hematuria Qualified Code(s): N30.00 - Acute cystitis without hematuria (8) Acute kidney injury Priority: Secondary Status: Acute Hospital course: Ms. Harmon is a 68 year old female who came to emergency room stating she had hyperglycemia the day of admission upon awakening. She reports her glucose meter read "high". She did not check her blood pressure at home but felt it might be elevated. When she did not improve after a few hours she called EMS. Blood pressure was found to be 193/96 and blood glucose 521. She was brought to emergency room and admitted to [facility] for ongoing care needs. Initial orders were written by the emergency room physician. I saw her on April 20 and performed a history and physical. She was started on IV fluids, Levemir, and Humulin R in emergency room. Blood sugar returned to an acceptable range. Hemoglobin A1c on April 21 returned significantly elevated at 13.9%. Lisinopril and Mobic were held because of azotemia. Creatinine had improved to 1.25 by April 21. The evening of April 21 the patient developed onset of significant dyspnea, temperature 99.6, pulse 120, and respirations 28. Rapid response was called and the patient was given IV Lasix and labetalol. Arredondo catheter was inserted. ABG showed acute respiratory insufficiency with pH 7.20 and PCO2 of 59. She was placed on BiPAP and arrangements were made by Dr. Torres for her to be transferred [facility] for ongoing care needs. - Time Spent with Patient Total time spent providing and/or coordinating discharge services: - Discharge Medications Prescriptions: No Action Lisinopril [Zestril] 20 mg PO DAILY #0 Insulin Glargine,Hum.rec.anlog [Lantus Solostar] 20 unit SQ HS Paroxetine HCl [Paxil] 40 mg PO DAILY Gemfibrozil [Lopid] 600 mg PO BID Gabapentin [Neurontin] 300 mg PO TID Ferrous Sulfate [Iron] 325 mg PO DAILY Sucralfate [Carafate] 1 gm PO QIDAC Aspirin Enteric Coated [Aspirin EC] 81 mg PO DAILY Trazodone HCl 100 mg PO HS Atenolol 100 mg PO DAILY glyBURIDE [GlyBURIDE] 5 mg PO DAILY risperiDONE [RisperDAL] 4 mg PO HS Cholecalciferol (Vitamin D3) [Vitamin D] 5,000 unit PO DAILY Meloxicam [Mobic] 15 mg PO DAILY Meclizine [Antivert] 25 mg PO DAILY PRN PRN Reason: dizzy Omeprazole [PriLOSEC] 20 mg PO DAILY Home Medications: Insulin Glargine,Hum.rec.anlog [Lantus Solostar] 20 unit SQ HS 06/27/15 [History] Lisinopril [Zestril] 20 mg PO DAILY #0 06/27/15 [History] Ferrous Sulfate [Iron] 325 mg PO DAILY 01/23/17 [History] Gabapentin [Neurontin] 300 mg PO TID 01/23/17 [History] Gemfibrozil [Lopid] 600 mg PO BID 01/23/17 [History] Paroxetine HCl [Paxil] 40 mg PO DAILY 01/23/17 [History] Atenolol 100 mg PO DAILY 12/19/18 [History] Cholecalciferol (Vitamin D3) [Vitamin D] 5,000 unit PO DAILY 12/19/18 [History] glyBURIDE [GlyBURIDE] 5 mg PO DAILY 12/19/18 [History] risperiDONE [RisperDAL] 4 mg PO HS 12/19/18 [History] Meclizine [Antivert] 25 mg PO DAILY PRN 04/19/19 [History] Meloxicam [Mobic] 15 mg PO DAILY 04/19/19 [History] Omeprazole [PriLOSEC] 20 mg PO DAILY 04/19/19 [History] Aspirin Enteric Coated [Aspirin EC] 81 mg PO DAILY 04/22/19 [History] Sucralfate [Carafate] 1 gm PO QIDAC 04/22/19 [History] Trazodone HCl 100 mg PO HS 04/22/19 [History] Allergies/Adverse Reactions: Allergy/AdvReac Type Severity Reaction Status Date / Time iodine Allergy Hives Verified 07/25/17 16:16 Date of admission: 04/19/19 16:52 Primary care physician: Jeremiah Villanueva DO - Constitutional Vitals: Temp Pulse Resp BP Pulse Ox 98.1 F 80 22 158/84 97 04/21/19 21:30 04/21/19 21:30 04/21/19 21:30 04/21/19 21:30 04/21/19 21:30 - Patient Status Disposition: Transfer Other Condition: Fair - Discharge Instructions Follow Up With: Jeremiah Villanueva DO [Primary Care Provider] - 1 week - VTE Reasons for not Prescribing Prophylaxis: Treatment not Indicated - Low risk for VTE
== END 2019-04-21 23:45 | disposition other institution (70) ==
LOC: INPPIK 14:16 → EMEROOPIK 14:16 → INPPIK 17:26
PROVIDERS: ADMIT Internal Medicine; ATTEND Internal Medicine